=== PATIENT | female | born 1970 | race Caucasian/White ===

== ENCOUNTER → 2017-06-25 | Outpatient (CLI) | payer OTHER ==
--- NOTE | 2017-06-25 12:03 | MR ---
EXAMINATION TYPE: MR knee RT wo con DATE OF EXAM: 06/25/2017 11:50 AM COMPARISON: NONE HISTORY: Right knee pain TECHNIQUE: Multiplanar, multisequence imaging of the right knee is performed. FINDINGS: MEDIAL MENISCUS: Anterior and posterior horns are intact without tear. LATERAL MENISCUS: There is surgical absence of the posterior horn lateral meniscus and portions of th e body. Anterior horn is intact. CRUCIATE LIGAMENTS: Chronic tear ACL is noted. PCL is intact. COLLATERAL LIGAMENTS: The medial collateral ligament and lateral collateral ligament complex are intact and unremarkable. EXTENSOR MECHANISM: Visualized quadriceps and patellar tendons are intact. EFFUSION: Large joint effusion is identified. POPLITEAL CYST: No popliteal/wells cyst. TRICOMPARTMENT SPACES: Mild to moderate degenerative narrowing involving the medial and lateral tibio femoral joint space as well as the patellofemoral joint space. Early changes of chondromalacia patell a. Intercondylar spur formation as well as spurring along the margins of the tibial plateaus and femo ral condyles. CARTILAGE/BONE MARROW SIGNAL: Cartilaginous defect midportion lateral femoral condyle. Subchondral i ncreased signal within the femoral condyle and tibial plateau laterally. OTHER: No additional significant abnormality is appreciated. IMPRESSION: 1. Postsurgical change of the lateral meniscus without evidence for recurrent tear. 2. Chronic tear of the ACL. 3. Cartilaginous defect midportion lateral femoral condyle. Subchondral increased signal within the f emoral condyle and tibial plateau laterally. 4. Large joint effusion. 5. Changes of osteoarthritis.
== END | disposition home or self-care (01) ==
LOC: RADMRIMAIN 11:15
PROVIDERS: ATTEND Orthopaedic Surgery
DX: S83.511A Sprain of anterior cruciate ligament of right knee, initial encounter (principal); M17.11 Unilateral primary osteoarthritis, right knee; Z98.890 Other specified postprocedural states

== ENCOUNTER → 2017-07-22 | Outpatient (CLI) | payer OTHER ==
[2017-07-22 12:13] LABS: EKG EKG PERFORMED
[2017-07-22 12:24] LABS: Basophils % (A) 0 %; CH 29.4; CHCM 31.9; Eosinophils # (A) 0.2 k/uL (0-0.7); Eosinophils % (A) 2 %; HCT 46.8 % (34.0-46.0); HDW 2.24; HGB 14.8 gm/dL (11.4-16.0); Luc # (Auto) 0.24; Luc % (Auto) 2; Lymphocytes # (A) 2.1 k/uL (1.0-4.8); Lymphocytes % (A) 20 %; MCH 29.3 pg (25.0-35.0); MCHC 31.6 g/dL (31.0-37.0); MCV 92.8 fL (80.0-100.0); Monocytes # (A) 0.4 k/uL (0-1.0); Monocytes % (A) 4 %; Neutrophils # (A) 7.6 k/uL (1.3-7.7); Neutrophils % (A) 71 %; RBC 5.05 m/uL (3.80-5.40); WBC 10.6 k/uL (3.8-10.6); WBC (Perox) 10.65
[2017-07-22 12:40] LABS: Anion Gap 9 mmol/L; Carbon Dioxide 28 mmol/L (22-30); Chloride 105 mmol/L (98-107); Potassium 5.3 mmol/L (3.5-5.1); Sodium 142 mmol/L (137-145)
== END | disposition home or self-care (01) ==
LOC: LABPAT 11:47
PROVIDERS: ATTEND Orthopaedic Surgery
DX: Z01.810 Encounter for preprocedural cardiovascular examination (principal); M23.91 Unspecified internal derangement of right knee
CPT/HCPCS: 36415; 80051; 85025; 93005

== ENCOUNTER 2019-03-19 11:03 | Emergency (ER) | payer OTHER ==
[2019-03-19 11:22] VITALS: BP 127/96; PULSE 77; RESP 18; TEMP 98.8
[2019-03-19] MEDS ORDERED: KETOROLAC 60 MG/2 ML VIAL IM STA (12:20)
--- NOTE | 2019-03-19 12:58 | XR ---
Cervical spine HISTORY: Left neck pain, radiating to left shoulder and arm 5 views of the cervical spine Cervical vertebral bodies show preserved height, alignment, and bone mineralization. Reversal the nor mal cervical lordosis may be due to muscle spasm. There is loss of disc height greatest at C 6-7. Mul tilevel spondylosis is present. Prevertebral soft tissues are normal. No significant foraminal encroa chment. IMPRESSION: Degenerative disc disease.
--- NOTE | 2019-03-19 14:00 | ED ---
General Adult HPI - General Chief complaint: Neck Pain/Injury Stated complaint: Pinched nerve c4 & c5 Time Seen by Provider: 03/19/19 12:14 Source: patient Mode of arrival: ambulatory Limitations: no limitations - History of Present Illness Initial comments: Patient is a 49-year-old female presenting to emergency Department with complaints of left-sided neck pain 3 weeks. Patient states he woke up one morning and started having left-sided neck pain that radiates into her arm. States she went to a chiropractor who suggested she had a pinched nerve. She tried some adjustments without improvement. Patient states she just recently has medical insurance again and would like this checked. Patient describes the pain as in the left side of her neck that comes down by her scapula with radiation into her left arm. Patient denies chest pain, shortness of breath, nausea, vomiting. - Related Data Home Medications Medication Instructions Recorded Confirmed ALPRAZolam [Xanax] 1 mg PO HS 04/18/16 07/26/17 QUEtiapine [SEROquel] 50 mg PO HS 05/08/16 07/26/17 Cyclobenzaprine [Flexeril] 10 mg PO HS PRN 07/22/17 07/26/17 Previous Rx's Medication Instructions Recorded Ibuprofen [Motrin] 800 mg PO Q8HR PRN #60 tab 04/21/16 Hydrocodone/Acetaminophen [[place] 1 each PO Q6HR PRN #20 tab 07/26/17 5-325] Cyclobenzaprine [Flexeril] 5 mg PO TID PRN #10 tablet 03/19/19 Allergies Allergy/AdvReac Type Severity Reaction Status Date / Time sulfamethoxazole AdvReac Severe YEAST Verified 03/19/19 11:22 [From Bactrim] INFECTION trimethoprim [From Bactrim] AdvReac Severe YEAST Verified 03/19/19 11:22 INFECTION Review of Systems ROS Statement: Those systems with pertinent positive or pertinent negative responses have been documented in the HPI. ROS Other: All systems not noted in ROS Statement are negative. Past Medical History Past Medical History: Diabetes Mellitus, Osteoarthritis (OA) Additional Past Medical History / Comment(s): INJURY TO RIGHT KNEE AND LEFT FOOT WHEN GOLF CART ROLLED OVER ON 04/07/16, STATES LEFT FOOT CELLULITS WITH WOUNDS ON TOP OF LEFT FOOT HEALING BUT STATES IT IS STILL SWOLLEN AND BRUISED. WEARING A BRACE RIGHT KNEE AND USING A WALKER . History of Any Multi-Drug Resistant Organisms: None Reported Past Surgical History: Section, Hysterectomy, Orthopedic Surgery, Tubal Ligation, Uterine Ablation Additional Past Surgical History / Comment(s): TUBAL SURGERY, GANGLION CYST REMOVED, LEFT KNEE MENISCUS SURGERY. Past Anesthesia/Blood Transfusion Reactions: No Reported Reaction Past Psychological History: No Psychological Hx Reported Smoking Status: Current every day smoker Past Alcohol Use History: None Reported Past Drug Use History: None Reported - Past Family History Brother(s) Family Medical History: Diabetes Mellitus Sister(s) Family Medical History: Unable to Obtain Daughter(s) Family Medical History: No Reported History Son(s) Family Medical History: No Reported History Father Family Medical History: Cancer Mother Family Medical History: Diabetes Mellitus, Myocardial Infarction ([place]) General Exam - General Exam Comments Initial Comments: GENERAL: Well-appearing, well-nourished and in no acute distress. HEAD: Atraumatic, normocephalic. EYES: Pupils equal round and reactive to light, extraocular movements intact, sclera anicteric, conjunctiva are normal. ENT: TMs normal, nares patent, oropharynx clear without exudates. Moist mucous membranes. NECK: Normal range of motion of the cervical spine with tightness at the end range of flexion and right lateral flexion. Supple without lymphadenopathy or JVD. Pain with palpation of the left upper and middle trapezius and cervical paraspinals. LUNGS: Breath sounds clear to auscultation bilaterally and equal. No wheezes rales or rhonchi. HEART: Regular rate and rhythm without murmurs, rubs or gallops. ABDOMEN: Soft, nontender, normoactive bowel sounds. No guarding, no rebound. No masses appreciated. : Deferred EXTREMITIES: Normal range of motion, no pitting or edema. No clubbing or cyanosis. NEUROLOGICAL: Cranial nerves II through XII grossly intact. Normal speech, normal gait. PSYCH: Normal mood, normal affect. SKIN: Warm, Dry, normal turgor, no rashes or lesions noted. Limitations: no limitations Course Vital Signs 03/19/19 11:19 Temperature 98.8 F Pulse Rate 77 Respiratory 18 Rate Blood Pressure 127/96 O2 Sat by Pulse 98 Oximetry Medical Decision Making - Medical Decision Making Patient is a 49-year-old female complaining of left-sided neck pain and muscle spasms as 3 weeks. Patient states he went to a chiropractor receded adjustments without improvement. She recently has medical insurance and would like checked. On exam patient is tender over the left upper trapezius and tightness and range of motion. X-rays of the cervical spine reveal degenerative changes. No acute fractures. Toradol was given with improvement. Patient be discharged home with trial of flexeril and urged to follow up with orthopedics. Case discussed with Dr. Oleary. Disposition Clinical Impression: Disc disorder of cervical region, Cervical radiculopathy Disposition: HOME SELF-CARE Condition: Stable Instructions (If sedation given, give patient instructions): Cervical Radiculopathy (ED) Additional Instructions: Please return to the Emergency Department if symptoms worsen or any other concerns. Prescriptions: Cyclobenzaprine [Flexeril] 5 mg PO TID PRN #10 tablet PRN Reason: Muscle Spasm Is patient prescribed a controlled substance at d/c from ED?: No Referrals: Ashish Raphael DO [Primary Care Provider] - 1-2 days Viral Gar DO [Medical Doctor] - 1-2 days
== END 2019-03-19 14:08 | disposition home or self-care (01) ==
LOC: EC 11:03 → SUPCPDRO 11:03 → EC 14:08
DX: M50.10 Cervical disc disorder with radiculopathy, unspecified cervical region (principal); M47.892 Other spondylosis, cervical region; M19.90 Unspecified osteoarthritis, unspecified site; F17.200 Nicotine dependence, unspecified, uncomplicated; Z79.899 Other long term (current) drug therapy; Z88.1 Allergy status to other antibiotic agents; Z88.2 Allergy status to sulfonamides
CPT/HCPCS: 72050; 99283; 96372; J1885

== ENCOUNTER 2019-09-01 13:19 | Emergency (ER) | payer OTHER ==
[2019-09-01 13:38] VITALS: BP 121/82; PULSE 89; RESP 18; TEMP 98.1
[2019-09-01] MEDS ORDERED: ACYCLOVIR 400 MG/10 ML CUP PO ONE (14:15)
[2019-09-01] MEDS ORDERED: ACET/COD 300 MG/30 MG STARTER PACK 6 TAB BTL PO STA (14:15)
[2019-09-01] MEDS ORDERED: CEPHALEXIN 500MG STARTER PACK 4 CAP BTL PO STA (14:15)
--- NOTE | 2019-09-01 14:47 | ED ---
General Adult HPI - General Chief complaint: Urogenital Stated complaint: Female , finger pain Source: patient, RN notes reviewed, old records reviewed Mode of arrival: ambulatory Limitations: no limitations - History of Present Illness Initial comments: Edith is a 49-year-old female she presents emergency department today for evaluation for multiple complaints. She reports that she's had an infection over her left index finger for the past week. She reports that she initially was taking of a octavio basket, and believes that she caused a splinter on the edge of her finger. She reports that over the past few days been increasing in size, tender and erythema. Patient also reports that approximately 2 weeks ago she had intercourse and reports that since that time she's developed a "bump, on her vaginal opening, and complains of significant pain with palpation. She reports that she is unable to see the area at this time. She denies any abnormal vaginal discharge or dysuria. Patient states that she also has been dealing with a hamstring injury. She reports that this occur the same day that she had intercourse. Patient states that she has pain with range of motion of her leg from time to time. Denies any lower extremity swelling. - Related Data Home Medications Medication Instructions Recorded Confirmed ALPRAZolam [Xanax] 1 mg PO HS 04/18/16 07/26/17 QUEtiapine [SEROquel] 50 mg PO HS 05/08/16 07/26/17 Cyclobenzaprine [Flexeril] 10 mg PO HS PRN 07/22/17 07/26/17 Previous Rx's Medication Instructions Recorded Ibuprofen [Motrin] 800 mg PO Q8HR PRN #60 tab 04/21/16 Hydrocodone/Acetaminophen [[place] 1 each PO Q6HR PRN #20 tab 07/26/17 5-325] Cyclobenzaprine [Flexeril] 5 mg PO TID PRN #10 tablet 03/19/19 Cephalexin [Keflex] 500 mg PO Q8HR #21 cap 09/01/19 valACYclovir HCL [Valtrex] 1,000 mg PO Q8HR #21 tab 09/01/19 Allergies Allergy/AdvReac Type Severity Reaction Status Date / Time sulfamethoxazole AdvReac Severe YEAST Verified 09/01/19 13:35 [From Bactrim] INFECTION trimethoprim [From Bactrim] AdvReac Severe YEAST Verified 09/01/19 13:35 INFECTION Review of Systems ROS Statement: Those systems with pertinent positive or pertinent negative responses have been documented in the HPI. ROS Other: All systems not noted in ROS Statement are negative. Past Medical History Past Medical History: Diabetes Mellitus, Osteoarthritis (OA) Additional Past Medical History / Comment(s): INJURY TO RIGHT KNEE AND LEFT FOOT WHEN GOLF CART ROLLED OVER ON 04/07/16, STATES LEFT FOOT CELLULITS WITH WOUNDS ON TOP OF LEFT FOOT HEALING BUT STATES IT IS STILL SWOLLEN AND BRUISED. WEARING A BRACE RIGHT KNEE AND USING A WALKER . History of Any Multi-Drug Resistant Organisms: None Reported Past Surgical History: Section, Hysterectomy, Orthopedic Surgery, Tubal Ligation, Uterine Ablation Additional Past Surgical History / Comment(s): TUBAL SURGERY, GANGLION CYST REMOVED, LEFT KNEE MENISCUS SURGERY. Past Anesthesia/Blood Transfusion Reactions: No Reported Reaction Past Psychological History: Anxiety Smoking Status: Current every day smoker Past Alcohol Use History: Occasional Past Drug Use History: Marijuana - Past Family History Brother(s) Family Medical History: Diabetes Mellitus Sister(s) Family Medical History: Unable to Obtain Daughter(s) Family Medical History: No Reported History Son(s) Family Medical History: No Reported History Father Family Medical History: Cancer Mother Family Medical History: Diabetes Mellitus, Myocardial Infarction ([place]) General Exam - General Exam Comments Initial Comments: Pleasant 49-year-old female. No distress. Limitations: no limitations General appearance: alert, in no apparent distress Head exam: Present: atraumatic, normocephalic, normal inspection Eye exam: Present: normal appearance, PERRL, EOMI. Absent: scleral icterus, conjunctival injection, periorbital swelling ENT exam: Present: normal exam, mucous membranes moist Neck exam: Present: normal inspection. Absent: tenderness, meningismus, lymphadenopathy Respiratory exam: Present: normal lung sounds bilaterally. Absent: respiratory distress, wheezes, rales, rhonchi, stridor Cardiovascular Exam: Present: regular rate, normal rhythm, normal heart sounds. Absent: systolic murmur, diastolic murmur, rubs, gallop, clicks GI/Abdominal exam: Present: soft, normal bowel sounds. Absent: distended, tenderness, guarding, rebound, rigid External exam: Present: normal external exam Speculum exam: Present: other (Bills has 3 separate blisterlike lesions over the labia minora, and vaginal vault. Concern for herpes.). Absent: normal speculum exam By manual exam: Present: normal by manual exam. Absent: cervical motion tenderness Extremities exam: Present: normal inspection, full ROM, normal capillary refill. Absent: tenderness, pedal edema, joint swelling, calf tenderness Back exam: Present: normal inspection Neurological exam: Present: alert, oriented X3, CN II-XII intact Psychiatric exam: Present: normal affect, normal mood Skin exam: Present: warm, dry, intact, normal color. Absent: rash Course Vital Signs 09/01/19 13:35 Temperature 98.1 F Pulse Rate 89 Respiratory 18 Rate Blood Pressure 121/82 O2 Sat by Pulse 99 Oximetry Medical Decision Making - Medical Decision Making 49-year-old female presents for multiple complaints. She is concerned due to a paronychia over the left index finger. This was incised and drained. There is blind, purulent fluid was removed but to little to obtain a culture. Patient was placed on antibiotics and discussed doing warm soaks of the finger. She also Is concerned for a irritation over her labia and vagina after intercourse. On exam is concerning for herpes simplex-like lesions with blistering noted. I discussed treatment Patient this time with Valtrex. Her analysis is negative for infection Trichomonas test is negative. She had no adnexal tenderness on exam. I discussed treatment with anti-inflammatory medication as well and to follow-up with a gang plank workman. All questions were answered return parameters were discussed. - Lab Data Lab Results 09/01/19 09/01/19 09/01/19 Range/Units 14:28 14:28 14:28 Urine Color Yellow Urine Appearance Cloudy H (Clear) Urine pH 5.5 (5.0-8.0) Ur Specific [place] 1.013 (1.001-1.035) Urine Protein Negative (Negative) Urine Glucose (UA) Negative (Negative) Urine Ketones Negative (Negative) Urine Blood Small H (Negative) Urine Nitrite Negative (Negative) Urine Bilirubin Negative (Negative) Urine Urobilinogen <2.0 (<2.0) mg/dL Ur Leukocyte Esterase Large H (Negative) Urine RBC 7 H (0-5) /hpf Ur Squamous Epith Cells 3 (0-4) /hpf Urine Bacteria Moderate H (None) /hpf Urine Mucus Rare H (None) /hpf Urine HCG, Qual Not Detected (Not Detectd) Trichomonas Ag (Rapid) Negative (Negative) Disposition Clinical Impression: Herpes, Paronychia, Hamstring strain Disposition: HOME SELF-CARE Condition: Good Instructions (If sedation given, give patient instructions): Genital Herpes Simplex (ED), Paronychia (ED) Additional Instructions: Patient advised to take medications as prescribed. Do warm soaks of the finger. Follow-up with primary care doctor and gynecology. Prescriptions: Cephalexin [Keflex] 500 mg PO Q8HR #21 cap valACYclovir HCL [Valtrex] 1,000 mg PO Q8HR #21 tab Is patient prescribed a controlled substance at d/c from ED?: No Referrals: Ashish Raphael DO [Primary Care Provider] - 1-2 days Time of Disposition: 15:01
[2019-09-01 14:48] LABS: Appearance,Urine Cloudy (Clear); Bacteria,Urine Moderate /hpf; Bilirubin,Urine Negative (Negative); Blood,Urine Small (Negative); Color,Urine Yellow; Glucose,Urine (UA) Negative (Negative); Ketones,Urine Negative (Negative); Leukocyte Esterase,Urine Large (Negative); Mucus,Urine Rare /hpf; Nitrite,Urine Negative (Negative); PH, Urine 5.5 (5.0-8.0); Protein,Urine Negative (Negative); RBC,Urine 7 /hpf (0-5); Specific Gravity,Urine 1.013 (1.001-1.035); Squamous Epithelial Cell,Urine 3 /hpf (0-4); Urobilinogen,Urine <2.0 mg/dL (<2.0)
[2019-09-02 14:09] LABS: C. trachomatis,PCR Negative (Neg,Equiv); Chlamydia trachomatis Source Vagina; N. gonorrhoeae,PCR Negative (Neg,Equiv); Neisseria Source Vagina
--- NOTE | 2019-09-03 08:49 | CDI ---
Documentation Clarification OP Dear Cammie Kaplan PA-C, PAC Please provide paronychia incision & drainage complete procedure note. Thank you, Adelina Green Recreational Sports Director If you have any questions, please contact Special Events Assistant at [phone] [facility]
--- NOTE | 2019-09-10 07:44 | CDI ---
Documentation Clarification OP Dear Cammie Kaplan PA-C, PAC Please provide paronychia incision & drainage complete procedure note Thank you, Adelina Green Outside Installer Apprentice If you have any questions, please contact Ui Developer Designer at [phone] [facility]
--- NOTE | 2019-09-14 10:57 | ED ---
Medical Decision Making - Lab Data Lab Results 09/01/19 09/01/19 09/01/19 Range/Units 14:28 14:28 14:28 Urine Color Yellow Urine Appearance Cloudy H (Clear) Urine pH 5.5 (5.0-8.0) Ur Specific [place] 1.013 (1.001-1.035) Urine Protein Negative (Negative) Urine Glucose (UA) Negative (Negative) Urine Ketones Negative (Negative) Urine Blood Small H (Negative) Urine Nitrite Negative (Negative) Urine Bilirubin Negative (Negative) Urine Urobilinogen <2.0 (<2.0) mg/dL Ur Leukocyte Esterase Large H (Negative) Urine RBC 7 H (0-5) /hpf Urine WBC 28 H (0-5) /hpf Ur Squamous Epith Cells 3 (0-4) /hpf Urine Bacteria Moderate H (None) /hpf Urine Mucus Rare H (None) /hpf Urine HCG, Qual Not Detected (Not Detectd) Chlamydia Source Chlamydia DNA (PCR) (Neg,Equiv) N. gonorrhoeae Source N.gonorrhoeae DNA Probe (Neg,Equiv) Trichomonas Ag (Rapid) Negative (Negative) 09/01/19 Range/Units 14:29 Urine Color Urine Appearance (Clear) Urine pH (5.0-8.0) Ur Specific [place] (1.001-1.035) Urine Protein (Negative) Urine Glucose (UA) (Negative) Urine Ketones (Negative) Urine Blood (Negative) Urine Nitrite (Negative) Urine Bilirubin (Negative) Urine Urobilinogen (<2.0) mg/dL Ur Leukocyte Esterase (Negative) Urine RBC (0-5) /hpf Urine WBC (0-5) /hpf Ur Squamous Epith Cells (0-4) /hpf Urine Bacteria (None) /hpf Urine Mucus (None) /hpf Urine HCG, Qual (Not Detectd) Chlamydia Source Vagina Chlamydia DNA (PCR) Negative (Neg,Equiv) N. gonorrhoeae Source Vagina N.gonorrhoeae DNA Probe Negative (Neg,Equiv) Trichomonas Ag (Rapid) (Negative) Disposition Clinical Impression: Herpes, Paronychia, Hamstring strain Disposition: HOME SELF-CARE Condition: Good Instructions (If sedation given, give patient instructions): Genital Herpes Simplex (ED), Paronychia (ED) Additional Instructions: Patient advised to take medications as prescribed. Do warm soaks of the finger. Follow-up with primary care doctor and gynecology. Prescriptions: Fluconazole [Diflucan] 150 mg PO ONCE #3 tab Cephalexin [Keflex] 500 mg PO Q8HR #21 cap valACYclovir HCL [Valtrex] 1,000 mg PO Q8HR #21 tab Is patient prescribed a controlled substance at d/c from ED?: No Referrals: Ashish Raphael DO [Primary Care Provider] - 1-2 days Time of Disposition: 10:57 Procedures - Incision & Drainage Indication: paronychia Size (cm): 1 I&D Cleaning Method: Iodine Sterile Field Used?: Yes Scalpel Used: #11 Needle Aspiration Performed?: Yes Irrigation Performed?: Yes I&D Drainage Obtained: Blood Culture Obtained?: No Patient Tolerated Procedure: well, no complications
== END 2019-09-01 15:14 | disposition home or self-care (01) ==
LOC: EC 13:19
DX: S76.311A Strain of muscle, fascia and tendon of the posterior muscle group at thigh level, right thigh, initial encounter (principal); B00.9 Herpesviral infection, unspecified; L03.012 Cellulitis of left finger; F41.9 Anxiety disorder, unspecified; F17.200 Nicotine dependence, unspecified, uncomplicated; Z90.710 Acquired absence of both cervix and uterus; Z98.51 Tubal ligation status; Z79.899 Other long term (current) drug therapy; Z88.2 Allergy status to sulfonamides
CPT/HCPCS: 10160; 81001; 81025; 87070; 87086; 87491; 87591; 87808; 99284

== ENCOUNTER 2019-09-30 15:09 | Emergency (ER) | payer OTHER ==
[2019-09-30 16:02] VITALS: BP 130/83; PULSE 92; RESP 18; TEMP 98.3
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
[2019-09-30] MEDS ORDERED: metroNIDAZOLE 500 MG TAB PO STA (17:34)
[2019-10-01 14:45] LABS: N. gonorrhoeae,PCR Negative (Neg,Equiv); Neisseria Source Vagina
[2019-10-01 15:09] LABS: C. trachomatis,PCR Negative (Neg,Equiv); Chlamydia trachomatis Source Vagina
== END 2019-09-30 17:43 | disposition home or self-care (01) ==
LOC: EC 15:09
DX: N76.0 Acute vaginitis (principal); E11.9 Type 2 diabetes mellitus without complications; F41.9 Anxiety disorder, unspecified; F17.200 Nicotine dependence, unspecified, uncomplicated; Z79.899 Other long term (current) drug therapy; Z88.1 Allergy status to other antibiotic agents; Z88.2 Allergy status to sulfonamides
CPT/HCPCS: 87070; 87491; 87591; 87808; 99283

== ENCOUNTER → 2020-05-18 | Outpatient (CLI) | payer OTHER | END | disposition home or self-care (01) | LOC: LABPAT 13:34 | PROVIDERS: ATTEND Orthopaedic Surgery | DX: Z01.812 Encounter for preprocedural laboratory examination (principal) | CPT/HCPCS: 87070 ==

== ENCOUNTER → 2020-05-20 | Outpatient (CLI) | payer OTHER ==
--- NOTE | 2020-05-20 13:34 | XR ---
EXAMINATION TYPE: XR chest 2V DATE OF EXAM: 05/20/2020 COMPARISON: 04/07/2016 TECHNIQUE: PA and lateral views submitted. HISTORY: Preop FINDINGS: The lungs are clear and there is no pneumothorax, pleural effusion, or focal pneumonia. Heart is no rmal. There is no overt failure. Hypertrophic and degenerative change of the spine. Hyperinflation of the lungs. IMPRESSION: 1. No acute process.
== END | disposition home or self-care (01) ==
LOC: RADXRMAIN 13:18
PROVIDERS: ATTEND Family Medicine
DX: Z01.818 Encounter for other preprocedural examination (principal)
CPT/HCPCS: 71046

== ENCOUNTER → 2020-05-23 | Outpatient (CLI) | payer OTHER ==
[2020-05-23 16:01] LABS: Basophils # (A) 0.1 k/uL (0-0.2); Basophils % (A) 1 %; Eosinophils # (A) 0.3 k/uL (0-0.7); Eosinophils % (A) 2 %; HCT 47.7 % (34.0-46.0); HGB 14.8 gm/dL (11.4-16.0); Lymphocytes # (A) 2.4 k/uL (1.0-4.8); Lymphocytes % (A) 21 %; MCH 28.6 pg (25.0-35.0); MCHC 31.1 g/dL (31.0-37.0); MCV 92.1 fL (80.0-100.0); Mean Platelet Volume 7.4; Monocytes # (A) 0.3 k/uL (0-1.0); Monocytes % (A) 3 %; Neutrophils # (A) 8.4 k/uL (1.3-7.7); Neutrophils % (A) 73 %; Platelet Count 301 k/uL (150-450); RBC 5.17 m/uL (3.80-5.40); RDW 13.8 % (11.5-15.5); WBC 11.6 k/uL (3.8-10.6)
[2020-05-23 16:08] LABS: Prothrombin Time 10.7 sec (9.0-12.0)
[2020-05-23 16:12] LABS: Potassium 4.5 mmol/L (3.5-5.1)
== END | disposition home or self-care (01) ==
LOC: LABWHC1 14:57
PROVIDERS: ATTEND Family Medicine
DX: Z01.818 Encounter for other preprocedural examination (principal); M17.11 Unilateral primary osteoarthritis, right knee
CPT/HCPCS: 36415; 80051; 85025; 85610

== ENCOUNTER 2020-05-24 10:56 | Observation (INO) | payer OTHER ==
[2020-05-17 10:15] VITALS: BMI 34.7
--- NOTE | 2020-05-23 09:19 | HP ---
HISTORY AND PHYSICAL CHIEF COMPLAINT: Right knee pain. 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 She notes swelling and stiffness along with frequent giving way. She has tried multiple modalities for this to include medications, injection, and exercises. She has persistent pain that bothers her daily. PAST MEDICAL HISTORY: Significant for type 2 diabetes, arthritis. PAST SURGICAL HISTORY: Significant for right knee arthroscopy x2, left knee surgery, previous section. CURRENT MEDICATIONS: Xanax. ALLERGIES: She denies drug allergies. FAMILY HISTORY: Significant for diabetes and heart disease, along with cancer. SOCIAL HISTORY: Significant for current tobacco use. REVIEW OF SYSTEMS: Sixteen point review of systems otherwise reviewed and is noncontributory. PHYSICAL EXAMINATION: On examination, the patient is approximately 5 foot 6, 220 pounds of endomorphic habitus. HEENT: Exam is nonfocal. NECK: Supple. She has painless passive motion of the right hip. Straight leg raise is negative. Active motion right knee -6 to 135 degrees of flexion. She has a mild effusion. She is tender about the medial and lateral joint line. Collaterals are stable. Sabine's 1+. Pivot shift is positive. Khushi's is equivocal. She has genu valgum alignment. Her distal neurovascular appears intact in the right lower extremity. Weightbearing notch, lateral and Merchant views of the right knee obtained in the office show severe lateral compartment narrowing. IMPRESSION: 1. Right knee severe lateral compartment osteoarthrosis with anterior cruciate ligament deficiency. 2. Increased body mass index. 3. Non-insulin dependent diabetes. RECOMMENDATIONS: I talked to the patient at length regarding her condition along with treatment options. At this point, she is quite symptomatic and opts to proceed with surgery. We will plan to proceed with right total knee arthroplasty. Risks and benefits were discussed at length in layman's terms. We will institute DVT prophylaxis postoperatively. MMODL / IJN: [id number] /
[~2020-05-24 10:56] MED LIST: ACETAMINOPHEN TAB 500 MG TAB PO ONE; DEXAMETHASONE SOD PHOSPHATE 10 MG/ML 1 ML VIAL IV ONE; HYDROmorphone 0.5 MG/0.5 ML SYRINGE IVP PRN; LIDOCAINE 1% (10MG/ML) FOR IV START INTRADERMA PRN; MELOXICAM 7.5 MG TAB PO ONE; MIDAZOLAM 2 MG/2 ML VIAL IV PRN; ROPIVACAINE 246.25 MG, EPINEPHrine 0.5 MG, KETOROLAC 30 MG, cloNIDine HCL/PF 80 MCG, WA... MISCELLANE ONE; TRANEXAMIC ACID 1,000 MG in SODIUM CHLORIDE 0.9% 100 ML IVPB ONE
[2020-05-24 11:44] LABS: Glucose,Whole Blood 116 mg/dL (75-99)
[2020-05-24] MEDS ORDERED: ONDANSETRON 4 MG/2 ML VIAL ONE (11:59)
[2020-05-24] MEDS ORDERED: ACETAMINOPHEN TAB 500 MG TAB ONE (11:59)
[2020-05-24] MEDS: ONDANSETRON 4 MG/2 ML VIAL IVP ONE ×2 (12:05→16:41)
[2020-05-24] MEDS: LACTATED RINGERS 1,000 ML IV SCH (12:09)
[2020-05-24] MEDS ORDERED: MIDAZOLAM 2 MG/2 ML VIAL IVP ONE (12:12)
[2020-05-24] MEDS ORDERED: fentaNYL (PF) 50 MCG/ML 2 ML AMP IVP ONE (12:13)
[2020-05-24] MEDS ORDERED: PROPOFOL 10 MG/ML 20 ML VIAL IV ONE (13:04)
[2020-05-24] MEDS ORDERED: SODIUM CHLORIDE 0.9% 100 ML BAG ONE (13:04)
[2020-05-24] MEDS ORDERED: TRANEXAMIC ACID 1,000 MG/10 ML VIAL ONE (13:04)
[2020-05-24] MEDS ORDERED: fentaNYL (PF) 50 MCG/ML 2 ML AMP ONE (13:04)
[2020-05-24] MEDS ORDERED: PHENYLEPHRINE-0.9% NACL SYG 1 MG/10 ML SYRINGE ONE (13:04)
[2020-05-24] MEDS ORDERED: MIDAZOLAM 2 MG/2 ML VIAL ONE (13:04)
[2020-05-24] MEDS ORDERED: HYDROcodone/APAP 7.5-325MG 1 EACH TAB PO PRN (14:53)
[2020-05-24] MEDS ORDERED: NALOXONE 0.4 MG/ML 1 ML VIAL IV PRN (14:53)
[2020-05-24] MEDS ORDERED: ONDANSETRON 4 MG/2 ML VIAL IVP PRN (14:53)
[2020-05-24] MEDS ORDERED: ACETAMINOPHEN TAB 325 MG TAB PO PRN (14:53)
[2020-05-24] MEDS ORDERED: HYDROmorphone 0.5 MG/0.5 ML SYRINGE IVP PRN (14:53)
[2020-05-24] MEDS ORDERED: traMADol 50 MG TAB PO PRN (14:53)
[2020-05-24] MEDS ORDERED: MAGNESIUM HYDROXIDE 2,400 MG/10 ML CUP PO PRN (14:53)
[2020-05-24] MEDS ORDERED: ROPIVACAINE 0.2%-NS ON-Q PUMP 1,090 MG, EMPTY PAIN BALL 1 EACH MISCELLANE PRN (15:13)
--- NOTE | 2020-05-24 15:13 | P.OP ---
Date of Procedure: 05/24/20 Preoperative Diagnosis: Right knee severe tricompartmental osteoarthrosis Postoperative Diagnosis: Same Procedure(s) Performed: Right total knee arthroplastycementedposterior stabilized Implants: Depuy Attune size 6 narrow cemented femoral component, size 5 cemented tibial component, 9 mm articular surface, 35 mm cemented patellar component. This is a posterior stabilized implant. Anesthesia: spinal Surgeon: Patrick Fleming Lightout Examiner #1: Otto Simon Estimated Blood Loss (ml): 50 Pathology: other (Bone fragments) Condition: stable Disposition: PACU Indications for Procedure: Patient's a 50-year-old female presents with progressive right knee pain secondary osteoarthrosis despite conservative measures. A discussion the risks and benefits of operative intervention versus continued conservative measures. The patient. She opted proceed with surgery. Operative risks to include infection, neurovascular injury, development of blood clots, possible component loosening, possible component failure need for subsequent procedures was discussed. Informed consent was obtained. Operative Findings: As below Description of Procedure: The patient was brought to the operating room, and after induction of spinal anesthesia the right lower extremity was prepped and draped in a normal fashion. The tourniquet was inflated to 270 mm marker. A longitudinal incision extending 3 finger breaths above the superior pole of patella extending to the medial aspect the tibial tubercle was then made. The skin and subcutaneous tissues were divided sharply. Electrocautery was used for hemostasis. A medial parapatellar arthrotomy was performed. The medial soft tissues to include the superficial and deep portions of the medial collateral ligament were elevated landaverde bperiosteally. The patella was everted. A portion of the retropatellar fat pad was excised sharply. The anterior cruciate ligament was sacrificed. Blunt retractors were placed. A starting hole was made in the distal femur 1 cm anterior to the posterior cruciate ligament origin. An intramedullary femoral guide was then inserted planning on 5 valgus distal cut with 9 mm distal resection. The cutting block was pinned in place. The distal cut was then made. The posterior referencing sizing guide was utilized. I felt size 6 narrow was most appropriate. 3 of external rotation was built into the system and verified off the trans-epicondylar axis and the posterior condyles. The cutting block was pinned in place. The anterior, posterior, and chamfer cuts then made. Bone fragments were removed. The intercondylar guide was placed and the notch cut was made with a sagittal saw. The bone block was removed in one fragment. The trial component was then placed. There is good anterior to posterior and medial to lateral fit. The distal peg holes were drilled. The trial component was removed. Attention was then paid towards preparing the proximal femur. An extra medullary guide was utilized in line with the tibial shaft and second metatarsal distally. I planned on 6 mm resection from the medial compartment. The cutting block was pinned in place. The proximal tibial cut was then made. The bone was removed in one fragment. The remnants of the medial and lateral menisci were excised at the capsular junction with electrocautery. The tibia sized most appropriately at size 5. The trial femoral and tibial components were placed along with a 9 mm articular surface. I was able to obtain full flexion and extension with internal and external rotation. After several flexion and extension cycles, the tibial rotation was marked with electrocautery line with the medial one third of the tibial tubercle. Attention was then paid towards preparing the patella. A patella reamer was utilized taking stem to 14 mm of bone stock. A good flush cut was made. The patella sized most appropriately 35 mm. The peg holes were drilled. The trial components placed. I had good patellofemoral tracking with no hands technique. The trial components were then removed. The tibia was prepared in the appropriate rotation with appropriate drill and keel punch. The posterior osteophytes were removed with a curved osteotome. The flexion and extension gaps were checked and felt to be symmetric at 9 mm. A trial components were then removed. The posterior soft tissues were injected with ropivacaine. The bony surfaces were prepared with pulsatile lavage and dried. The tibial component was then cemented place was fully seated. Excess cement was removed. The femoral component cemented place and was fully seated. Excess cement was removed. The trial 9 mm articular surface was placed and the knee was put in full extension. The patella component was cemented place. After the cement had sufficiently hardened, the knee was again taken through a range of motion. Again I was able to obtain full flexion and extension with varus and valgus stress. The trial 9 mm articular surface was removed and the final one inserted. This was fully seated. Care was taken to avoid any soft tissue interposition. Pulsatile lavage was again utilized. The medial parapatellar arthrotomy was closed with #2 Ethibond suture. The tourniquet was deflated with approximately 60 minutes total tourniquet time. Final hemostasis was obtained with the cautery. There was minimal bleeding therefore a deep drain was not placed. The subcutaneous tissues were reapproximated with interrupted 2-0 Vicryl sutures. The skin was reapproximated with 3-0 subcuticular strata fix suture. Skin tape and adhesive was applied. A sterile dressing was applied. The patient was awoken from sedation and transferred to recovery room in good condition. Blood loss was estimated at 50 mL. No complications were incurred. Sponge and needle counts were correct at the end of the case. Misael GONSALVES assisted during the major components of this case to include exposure, bone resection, implantation, and closure.
--- NOTE | 2020-05-24 15:47 | XR ---
EXAMINATION TYPE: XR knee limited RT DATE OF EXAM: 05/24/2020 CLINICAL HISTORY: Right knee pain and arthritis status post total knee replacement. TECHNIQUE: Portable AP and crosstable lateral views of the right knee are obtained immediately posto peratively. COMPARISON: ] Knee x-ray April 07, 2016. FINDINGS: Metallic hardware from total right knee arthroplasty is seen and appears satisfactory in a lignment and position. There is evidence of recent surgery with diffuse subcutaneous gas and soft ti ssue swelling noted. IMPRESSION: METALLIC HARDWARE FROM TOTAL RIGHT KNEE ARTHROPLASTY IS SATISFACTORY IN ALIGNMENT.
[2020-05-24] MEDS ORDERED: SENNOSIDES-DOCUSATE SODIUM 1 EACH TAB PO SCH (21:00)
--- NOTE | 2020-05-24 21:33 | P.ANPRN ---
Procedure Note - Anesthesia - Nerve Block Performed Right Adductor Canal Infusion Time Out Performed: Yes Date of Procedure: 05/24/20 Procedure Start Time: 12:12 Procedure Stop Time: 12:28 Location of Patient: PreOp Indication: Acute Post-Operative Pain, Dx/Pain Location, Requested by Surgeon Specifically requested for management of pain by : Nael Perez Sedation Type: Sedate with meaningful contact maintained Preparation: Sterile Prep, Sterile Dressing Position: Supine Catheter Depth at Skin (cm): 5 Catheter: Indwelling Needle Types: On-Q Needle Gauge: 20 Ultrasound used to visualize needle placement: Yes Ultrasound used to observe medication spread: Yes Injectate: 0.5% Ropivacaine (see comment for volume) Blood Aspirated: No Pain Paresthesia on Injection Noted: No Resistance on Injection: Normal Image Stored and Saved: Yes Events: Uneventful and Well Tolerated (20cc 0.5% Ropivacaine)
[2020-05-24] MEDS: HYDROmorphone 1 MG/ML 1 ML SYRINGE IVP PRN (21:37)
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
[2020-05-25] MEDS: HYDROmorphone 1 MG/ML 1 ML SYRINGE IVP PRN ×3 (00:44→09:02)
[2020-05-25] MEDS: LACTATED RINGERS 1,000 ML IV SCH (06:30)
[2020-05-25 07:07] LABS: Basophils % (A) 0 %; Eosinophils # (A) 0.1 k/uL (0-0.7); Eosinophils % (A) 1 %; HCT 41.4 % (34.0-46.0); HGB 12.8 gm/dL (11.4-16.0); Hypochromasia Slight; Lymphocytes # (A) 1.4 k/uL (1.0-4.8); Lymphocytes % (A) 9 %; MCH 28.8 pg (25.0-35.0); MCHC 30.8 g/dL (31.0-37.0); MCV 93.6 fL (80.0-100.0); Mean Platelet Volume 7.9; Monocytes # (A) 0.4 k/uL (0-1.0); Monocytes % (A) 3 %; Neutrophils # (A) 14.4 k/uL (1.3-7.7); Neutrophils % (A) 88 %; Platelet Count 266 k/uL (150-450); RBC 4.42 m/uL (3.80-5.40); RDW 13.5 % (11.5-15.5); WBC 16.5 k/uL (3.8-10.6)
--- NOTE | 2020-05-25 08:06 | P.PN ---
Progress Note - Text Progress Note Date: 05/25/20 Patient seen and examined this morning POD #1 from a right total knee replacement. She describes moderate pain in her knee but is sitting up in bed comfortably. She is able to ambulate with a walker and her spinal anesthetic has worn off. She reports no headache, nausea, fevers, chills. Catheter site checked and sterile dressing is intact. Continue with pain pump.
[2020-05-25 08:46] VITALS: BP 88/55; PULSE 50; RESP 17; TEMP 97.7
[2020-05-25] MEDS ORDERED: APIXABAN 2.5 MG TABLET PO SCH (09:00)
[2020-05-25] MEDS ORDERED: oxyCODONE-APAP 10-325MG 1 EACH TAB PO PRN (09:06)
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
--- NOTE | 2020-05-25 11:59 | P.PN ---
Subjective Progress Note Date: 05/25/20 Principal diagnosis: Status post right total knee arthroplasty Patient is evaluated today with her, she is resting comfortably. She's done well with therapy. Her pain is well-controlled. She denies any chest pain or shortness of breath. Objective - Vital Signs Vital signs: Vital Signs Temp 97.7 F 05/25/20 07:00 Pulse 50 L 05/25/20 07:00 Resp 17 05/25/20 07:00 BP 88/55 05/25/20 07:00 Pulse Ox 96 05/25/20 07:00 Intake & Output 05/24/20 05/25/20 05/25/20 18:59 06:59 18:59 Intake Total 1999 1030 Output Total 50 Balance 1950 1030 Weight 98.9 kg Intake: IV 2000 Intake, IV Titration 490 Amount Lactated Ringers 1,000 ml 340 @ 50 mls/hr IV .Q20H [facility] Rx#:[id number] ceFAZolin 2 gm In Sodium 100 Chloride 0.9% 50 ml @ 100 mls/hr IVPB ONCE ONE Rx# :[id number] ceFAZolin 2 gm In Sodium 50 Chloride 0.9% 50 ml @ 100 mls/hr IVPB Q8H [facility] Rx#: [id number] Oral 540 Output: Estimated Blood Loss 50 Other: Voiding Method Toilet Bedside Commode # Voids 1 - Exam Right lower extremity: Incision is clean, dry, and intact. The exofin fusion tape is in good condition. There is minimal soft tissue swelling and ecchymosis surrounding the medial and lateral aspects of the incision. Calf is soft, no tenderness with palpation. Plantar flexion, dorsiflexion, EHL, FHL are intact. Sensory exam to light touch throughout the extremity is intact, dorsal pedis pulses 2+. - Labs CBC & Chem 7: 05/25/20 06:37 Labs: Abnormal Lab Results - Last 24 Hours (Table) 05/25/20 Range/Units 06:37 WBC 16.5 H (3.8-10.6) k/uL MCHC 30.8 L (31.0-37.0) g/dL Neutrophils # 14.4 H (1.3-7.7) k/uL Assessment and Plan Assessment: status post right total knee arthroplasty Plan: Pain control, plan for oral medication of discharge GI and DVT prophylaxis, Eliquis 2.5mg bid for 14 days Wound care instructions were discussed Home physical therapy and nursing Medical recommendations Discharge planning: Plan for discharge home today Time with Patient: Less than 30
--- NOTE | 2020-05-25 12:03 | P.DS ---
Providers Date of admission: 05/24/2020 Expected date of discharge: 05/25/20 Attending physician: Patrick Fleming Primary care physician: Ashish [facility] Course: Date of admission: 05/24/2020 Date of discharge: 05/25/2020 Admission diagnosis: Status post right total knee arthroplasty Discharge diagnosis: Same Attending physician: Dr. Fleming Surgical procedures: Right total knee arthroplasty Brief history: Patient is a 50-year-old female with a history of progressive primary right knee osteoarthritis. At this point patient has failed conservative treatment measures and has opted to proceed with a elective right total knee arthroplasty. Hospital course: Details of patient's surgery can be found in operative report. Patient tolerated the procedure well and was subsequently transported to orthopedic floor. Patient's orthopeidc and medical care was provided daily. Patient had daily laboratory tests performed for evaluation of overall blood counts. Patient had daily physical therapy to include strengthening range of motion as well as education with walker ambulation. Patient was treated with Eliquis 2.5mg for their postoperative DVT prophylaxis during their inpatient stay. Patient was noted to have a relatively uneventful postoperative course. Patient reported satisfactory pain control with oral pain medications by postoperative day 0. Patient showed satisfactory progress with physical therapy. Patient moved steadily through the program and had no difficulty meeting the goals by postoperative day 1. Given patient's otherwise satisfactory course and having met physical therapy goals, plan is to discharge patient home on postoperative day 1. Discharge condition/disposition: Patient will be discharged home in stable condition. Discharge medications: Instructions are given on resumption of patient's normal daily medications per primary care recommendation, in addition patient will be prescribed Percocet 10 mg/325 mg, Colace 100mg, Eliquis 2.5mg. Discharge instructions: 1. Wound care and infection precautions, keep incision dry and covered while showering, no lotions, creams, moisturizers. No soaking, tubs, pools, hottubs. Do not scrub over the incision. 2. Weight-bear as tolerated with walker / cane until follow-up. 3. Ice and elevate when necessary. Do not exceed 20 minutes per hour with ice pack. 4. Utilize compression sleeve until seen at first follow up appointment. 5. Visiting nursing care. 6. Home physical therapy including home CPM. 7. Pain meds and anticoagulants per prescription. 8. Pain medication has potential to cause constipation. Increase oral fluid and fiber intake. Contact primary care provider if you have not had a bowel movement within 48 hours after discharge 9. No anti-inflammatory medication until discussed at first post operative visit, this including Motrin, Aleve, Mobic, Diclofenac. 10. Follow up in office at 2 weeks postop with Misael Smion PA-C 11. Follow up with your primary care doctor 7-10 days after discharge. 12. Contact [facility] with any questions, . Procedures: Right total knee arthroplasty Plan - Discharge Summary Discharge Rx Participant: Yes New Discharge Prescriptions: New Docusate [Colace] 100 mg PO DAILY #30 capsule Apixaban [Eliquis] 2.5 mg PO BID #60 tab oxyCODONE HCL/ACETAMINOPHEN [Percocet 10-325 mg] 1 tab PO Q4HR PRN #42 tab PRN Reason: Pain No Action ALPRAZolam [Xanax] 2 mg PO HS Ibuprofen [Motrin] 800 mg PO Q8HR PRN #60 tab PRN Reason: Pain QUEtiapine [SEROquel] 50 mg PO HS valACYclovir HCL [Valtrex] 1,000 mg PO Q8HR #21 tab Discharge Medication List ALPRAZolam [Xanax] 2 mg PO HS 04/18/16 [History] Ibuprofen [Motrin] 800 mg PO Q8HR PRN #60 tab 04/21/16 [Rx] QUEtiapine [SEROquel] 50 mg PO HS 05/08/16 [History] valACYclovir HCL [Valtrex] 1,000 mg PO Q8HR #21 tab 09/01/19 [Rx] Apixaban [Eliquis] 2.5 mg PO BID #60 tab 05/25/20 [Rx] Docusate [Colace] 100 mg PO DAILY #30 capsule 05/25/20 [Rx] oxyCODONE HCL/ACETAMINOPHEN [Percocet 10-325 mg] 1 tab PO Q4HR PRN #42 tab 05/25/20 [Rx] Follow up Appointment(s)/Referral(s): [facility] [NON-STAFF] - As Needed (Continuous Passive Motion knee machine ) Otto Simon PAC [PHYSICIAN PHARMACY INFORMATICIST] - 06/10/20 1:40 pm Ashish Raphael DO [Primary Care Provider] - 1 Week [facility] Visiting Nurse, [NON-STAFF] - As Needed Patient Instructions/Handouts: *Surgery [facility] - On-Q Pain Pump Discharge Inst ructions, Joint Replacement Surgery (DC) Activity/Diet/Wound Care/Special Instructions: Orthopedic Discharge Instructions: 1. Wound care and infection precautions, keep incision dry and covered while showering, no lotions, creams, moisturizers. No soaking, pools, hot tubs. Do not scrub over incision. 2. Weight-bear as tolerated with walker / cane until follow-up. 3. Ice and elevate when necessary. Do not exceed 20 minutes per hour with ice pack. 4. Utilize compression sleeve until seen at first follow up appointment. 5. Pain meds and anticoagulants per prescription. 6. Pain medication has potential to cause constipation. Increase oral fluid and fiber intake. Contact primary care provider if you have not had a bowel movement within 48 hours after discharge. 7. No anti-inflammatory medication until discussed at first post operative visit, this including Motrin, Aleve, Mobic, Diclofenac. 8. Follow up in office at 2 weeks postop with Misael Siomn PA-C 9. Follow up with your primary care doctor 7-10 days after discharge. 10. Contact [facility] with any questions, . Discharge Disposition: HOME WITH HOME HEALTH SERVICES
== END 2020-05-25 13:10 | disposition home health service (06) ==
LOC: OR 10:56 → 4SSUR 15:45 → OR 05-25 03:01
PROVIDERS: ADMIT Orthopaedic Surgery; ATTEND Orthopaedic Surgery
DX: M17.11 Unilateral primary osteoarthritis, right knee (principal); E11.9 Type 2 diabetes mellitus without complications; F17.200 Nicotine dependence, unspecified, uncomplicated; F41.1 Generalized anxiety disorder; J18.9 Pneumonia, unspecified organism; Z79.84 Long term (current) use of oral hypoglycemic drugs; Z82.49 Family history of ischemic heart disease and other diseases of the circulatory system; Z83.3 Family history of diabetes mellitus; Z86.14 Personal history of Methicillin resistant Staphylococcus aureus infection; Z90.710 Acquired absence of both cervix and uterus; Z98.891 History of uterine scar from previous surgery; Z79.899 Other long term (current) drug therapy; F32.9 Major depressive disorder, single episode, unspecified
CPT/HCPCS: 97110; 97161; 64448; 76942; 85025; 88300; 73560; 27447; G0378; C1713; C1776; J2250; J0171; J1100; J0690 ×2; J2405; J3010; J1885; J1170 ×2; J2795 ×2; J2370; J2704; J0735

== ENCOUNTER → 2021-02-24 | Outpatient (CLI) | payer OTHER ==
--- NOTE | 2021-02-27 11:02 | MM ---
Reason for exam: screening (asymptomatic). Last mammogram was performed 5 years and 8 months ago. History: Family history of breast cancer in paternal grandmother and breast cancer in paternal aunt. Benign excisional biopsy of the right breast, 2011. Reductions of both breasts, 1997. Physical Findings: A clinical breast exam by your physician is recommended on an annual basis and results should be correlated with mammographic findings. MG Screening Mammo w CAD Bilateral CC and MLO view(s) were taken. Prior study comparison: June 24, 2015, bilateral MG diagnostic mammo w CAD RICK. March 24, 2013, CAD bilateral diagnostic mammogram. There are scattered fibroglandular densities. Finding: There are round, regional calcifications in the anterior position of the left breast. There is no discrete abnormality. ASSESSMENT: Benign, BI-RAD 2 RECOMMENDATION: Routine screening mammogram of both breasts in 1 year.
== END | disposition home or self-care (01) ==
LOC: RADMAMWWP 09:40
PROVIDERS: ATTEND Obstetrics & Gynecology
DX: Z12.31 Encounter for screening mammogram for malignant neoplasm of breast (principal); Z80.3 Family history of malignant neoplasm of breast
CPT/HCPCS: 77067

== ENCOUNTER 2021-06-01 18:52 | Emergency (ER) | payer OTHER ==
[2021-06-01] MEDS ORDERED: AMPICILLIN-SULBACTAM 3 GM in SODIUM CHLORIDE 0.9% 100 ML IVPB STA (20:27)
[2021-06-01] MEDS ORDERED: KETOROLAC 15 MG/ML 1 ML VIAL IVP STA (20:27)
--- NOTE | 2021-06-01 20:29 | ED ---
Skin/Abscess/FB HPI - General Source: patient Mode of arrival: ambulatory Limitations: no limitations <Jania Wilkinson - Last Filed: 06/02/21 04:31> <Cinthya Posada - Last Filed: 06/02/21 11:30> - General Chief complaint: Skin/Abscess/Foreign Body Stated complaint: Cat scratch Swollen foot/ankle Time Seen by Provider: 06/01/21 20:05 - History of Present Illness Initial comments: 51-year-old female patient presents to the emergency department today for evaluation of redness and swelling surrounding a cat scratch injury on the left medial ankle. States scratch occurred about 3 days ago when her cat became startled. Denies any cat bite. States today the area became reddened and her leg became swollen. She denies any fever or chills. States the area is painful. Denies taking anything for pain. Denies history of diabetes. Denies any other injuries or concerns. (Jania Wilkinson) - Related Data Home Medications Medication Instructions Recorded Confirmed ALPRAZolam [Xanax] 2 mg PO HS 04/18/16 05/24/20 QUEtiapine [SEROquel] 50 mg PO HS 05/08/16 05/24/20 Previous Rx's Medication Instructions Recorded Ibuprofen [Motrin] 800 mg PO Q8HR PRN #60 tab 04/21/16 valACYclovir HCL [Valtrex] 1,000 mg PO Q8HR #21 tab 09/01/19 Apixaban [Eliquis] 2.5 mg PO BID #60 tab 05/25/20 Docusate [Colace] 100 mg PO DAILY #30 capsule 05/25/20 oxyCODONE HCL/ACETAMINOPHEN 1 tab PO Q4HR PRN #42 tab 05/25/20 [Percocet 10-325 mg] Amoxic-Pot Clav 875-125Mg 1 tab PO Q12HR #20 tablet 06/01/21 [Augmentin 875-125] Fluconazole [Diflucan] 150 mg PO ONCE #2 tab 06/01/21 Allergies Allergy/AdvReac Type Severity Reaction Status Date / Time sulfamethoxazole AdvReac Severe YEAST Verified 06/01/21 19:38 [From Bactrim] INFECTION trimethoprim [From Bactrim] AdvReac Severe YEAST Verified 06/01/21 19:38 INFECTION Review of Systems ROS Other: All systems not noted in ROS Statement are negative. <GenobetteJania Slick - Last Filed: 06/02/21 04:31> ROS Other: All systems not noted in ROS Statement are negative. <SwethaCinthya Evie - Last Filed: 06/02/21 11:30> ROS Statement: Those systems with pertinent positive or pertinent negative responses have been documented in the HPI. Past Medical History Past Medical History: Osteoarthritis (OA) Additional Past Medical History / Comment(s): DX WITH HERAUGUSTUSES 08/2019-NOT ACTIVE AT THIS TIME History of Any Multi-Drug Resistant Organisms: None Reported, MRSA Date of last positivie culture/infection: 08/2019 MDRO Source:: LT RING FINGER Past Surgical History: Section, Hysterectomy, Orthopedic Surgery, Tubal Ligation, Uterine Ablation Additional Past Surgical History / Comment(s): TUBAL SURGERY, GANGLION CYST REMOVED, LEFT KNEE MENISCUS SURGERY. RT KNEE SX X 2 Past Anesthesia/Blood Transfusion Reactions: No Reported Reaction Past Psychological History: Anxiety Smoking Status: Current every day smoker Past Alcohol Use History: Occasional Past Drug Use History: Marijuana - Past Family History Brother(s) Family Medical History: Diabetes Mellitus Sister(s) Family Medical History: Unable to Obtain Daughter(s) Family Medical History: No Reported History Son(s) Family Medical History: No Reported History Father Family Medical History: Cancer Mother Family Medical History: Diabetes Mellitus, Myocardial Infarction ([place]) <Dilshad Wilkinsonina Slick - Last Filed: 06/02/21 04:31> General Exam Limitations: no limitations General appearance: alert, in no apparent distress, other (This is a well- developed, well-nourished adult female patient in no acute distress. Vital signs upon presentation are temperature 98.8F, pulse 89, respirations 24, blood pressure 141/100, pulse ox 97% on room air.) Respiratory exam: Present: normal lung sounds bilaterally. Absent: respiratory distress, wheezes, rales, rhonchi, stridor Cardiovascular Exam: Present: regular rate, normal rhythm, normal heart sounds. Absent: systolic murmur, diastolic murmur, rubs, gallop, clicks GI/Abdominal exam: Present: soft, normal bowel sounds. Absent: distended, tenderness, guarding, rebound, rigid Extremities exam: Present: full ROM, normal capillary refill, other (There is superficial linear abrasion noted to the left medial ankle with surrounding erythema. There is mild soft tissue swelling noted over the lower leg and knee. Skin is otherwise pink, warm, dry. Cap refill less than 3 seconds. Pedal and posttibial pulses 2+.). Absent: tenderness, pedal edema, joint swelling, calf tenderness Neurological exam: Present: alert, oriented X3, CN II-XII intact Psychiatric exam: Present: normal affect, normal mood Skin exam: Present: warm, dry, intact, normal color. Absent: rash <Jania Wilkinson - Last Filed: 06/02/21 04:31> Course Vital Signs 06/01/21 06/01/21 19:35 21:21 Temperature 98.8 F 97 F L Pulse Rate 89 66 Respiratory 24 22 Rate Blood Pressure 141/100 124/79 O2 Sat by Pulse 97 97 Oximetry Medical Decision Making <Jania Wilkinson - Last Filed: 06/02/21 04:31> <Cinthya Posada - Last Filed: 06/02/21 11:30> - Medical Decision Making 51-year-old female patient presents for evaluation of leg swelling and redness with cat scratch. She is afebrile normal vital signs. She is given pain medication to the IV. She was given 1 dose of Unasyn here. She'll be discharged on Augmentin. Instructed to follow-up with her primary care physician for recheck in 1-2 days. Return parameters discussed in detail. She verbalizes understanding and agrees with this plan. Case discussed with my attending Dr. Posada. (Jania Wilkinson) I was available for consultation in the emergency department. The history and physical exam were done by the midlevel provider. I was consulted for this patients care. I reviewed the case with the midlevel provider and based on their presentation of the patient, I agree with the assessment, medical decision making and plan of care as documented. Chart was dictated using SWYF dictation software. Attempts were made to correct any dictation errors however some typographical errors may persist. (Cinthya Posada) Disposition Is patient prescribed a controlled substance at d/c from ED?: No Time of Disposition: 20:29 <Jania Wilkinson - Last Filed: 06/02/21 04:31> <Cinthya Posada - Last Filed: 06/02/21 11:30> Clinical Impression: Cat scratch of left lower leg, Left leg cellulitis Disposition: HOME SELF-CARE Condition: Good Instructions (If sedation given, give patient instructions): Cellulitis (ED) Additional Instructions: Complete antibiotic prescription and full. Take, Motrin for pain control. Follow-up through primary care physician for recheck in 1-2 days. Return to the emergency department for any new, worsening, or concerning symptoms. Prescriptions: Amoxic-Pot Clav 875-125Mg [Augmentin 875-125] 1 tab PO Q12HR #20 tablet Fluconazole [Diflucan] 150 mg PO ONCE #2 tab Referrals: Ashish Raphael DO [Primary Care Provider] - 1-2 days
[2021-06-01 21:22] VITALS: BP 124/79; PULSE 66; RESP 22; TEMP 97
== END 2021-06-01 21:22 | disposition home or self-care (01) ==
LOC: EC 18:52
DX: S80.812A Abrasion, left lower leg, initial encounter (principal); L03.116 Cellulitis of left lower limb; M19.90 Unspecified osteoarthritis, unspecified site; F41.9 Anxiety disorder, unspecified; F17.200 Nicotine dependence, unspecified, uncomplicated; F12.90 Cannabis use, unspecified, uncomplicated; Z90.710 Acquired absence of both cervix and uterus; Z98.51 Tubal ligation status; Z88.1 Allergy status to other antibiotic agents; Z88.2 Allergy status to sulfonamides; W55.03XA Scratched by cat, initial encounter
CPT/HCPCS: 99283; 96365; 96375; J0295; J1885

== ENCOUNTER → 2021-10-19 | Outpatient (CLI) | payer OTHER | END | disposition home or self-care (01) | LOC: LABPAT 13:27 | PROVIDERS: ATTEND Orthopaedic Surgery | DX: Z01.812 Encounter for preprocedural laboratory examination (principal); M17.12 Unilateral primary osteoarthritis, left knee | CPT/HCPCS: 87070 ==

== ENCOUNTER 2021-10-24 05:58 | Day surgery (SDC) | payer OTHER ==
[2021-10-16 16:15] VITALS: BMI 36.9
--- NOTE | 2021-10-23 11:14 | HP ---
HISTORY AND PHYSICAL CHIEF COMPLAINT: Left knee pain. HISTORY OF PRESENT ILLNESS: The patient is a 51-year-old female who presents with progressive left knee pain for the past several years, worsening recently. She notes pain, locking and giving way. She has tried medications, injections, activity modifications and an exercise program, with persistence/worsening of her symptoms. She notes daily pain that limits her. PAST MEDICAL HISTORY: Significant for arthritis, type 2 diabetes. PAST SURGICAL HISTORY: Significant for bilateral knee arthroscopy, right total knee arthroplasty and section. CURRENT MEDICATIONS: Current medications include ibuprofen and tramadol. FAMILY HISTORY: Significant for heart disease, diabetes and cancer. SOCIAL HISTORY: Significant for previous tobacco use. REVIEW OF SYSTEMS: Sixteen-point review of systems otherwise reviewed and is noncontributory. PHYSICAL EXAMINATION: On examination, the patient is approximately 5 feet 6 inches, 228 pounds of endomorphic habitus. HEENT exam is nonfocal. Neck is supple. She has painless passive motion of her left hip. Straight-leg raise is negative. Active motion of left knee: Minus 12 to 110 degrees of flexion. She has a mild effusion. She is tender about the medial joint line. Collaterals are stable, Sabine is negative, Khushi's is equivocal. Her distal neurovascular exam appears intact to the left lower extremity. Weightbearing notch, lateral and Merchant views of the left knee obtained in the office show severe lateral compartment narrowing with [id number] changes and subchondral sclerosis. IMPRESSION: 1. Left knee severe lateral compartment osteoarthrosis. 2. Increased body mass index. 3. Non-insulin dependent diabetes. RECOMMENDATIONS: I talked to the patient at length regarding her condition along with treatment options. At this point she remains quite symptomatic and limited because of pain related to her osteoarthrosis despite conservative measures. After thorough discussion, she opts to proceed with surgery. We will plan to proceed with left total knee arthroplasty. We will institute DVT prophylaxis postoperatively. MMODL / IJN: [id number] /
[~2021-10-24 05:58] MED LIST changes: -ACETAMINOPHEN TAB 500 MG TAB PO ONE; +ACETAMINOPHEN TAB 500 MG TAB PO PRN; -DEXAMETHASONE SOD PHOSPHATE 10 MG/ML 1 ML VIAL IV ONE; -HYDROmorphone 0.5 MG/0.5 ML SYRINGE IVP PRN; -LIDOCAINE 1% (10MG/ML) FOR IV START INTRADERMA PRN; -MELOXICAM 7.5 MG TAB PO ONE; +MELOXICAM 7.5 MG TAB PO PRN; -MIDAZOLAM 2 MG/2 ML VIAL IV PRN; -ROPIVACAINE 246.25 MG, EPINEPHrine 0.5 MG, KETOROLAC 30 MG, cloNIDine HCL/PF 80 MCG, WA... MISCELLANE ONE; -TRANEXAMIC ACID 1,000 MG in SODIUM CHLORIDE 0.9% 100 ML IVPB ONE; +TRANEXAMIC ACID 1,000 MG in SODIUM CHLORIDE 0.9% 100 ML IVPB PRN
[2021-10-24] MEDS ORDERED: LIDOCAINE 1% (10MG/ML) FOR IV START INTRADERMA PRN (05:59)
[2021-10-24] MEDS ORDERED: ONDANSETRON 4 MG/2 ML VIAL IVP ONE (05:59)
[2021-10-24] MEDS ORDERED: MIDAZOLAM 2 MG/2 ML VIAL IV PRN (05:59)
[2021-10-24] MEDS ORDERED: LACTATED RINGERS 1,000 ML IV SCH (05:59)
[2021-10-24] MEDS ORDERED: DEXAMETHASONE SOD PHOSPHATE 4 MG/ML 1 ML VIAL IV ONE (05:59)
[2021-10-24] MEDS ORDERED: HYDROmorphone 0.5 MG/0.5 ML SYRINGE IVP PRN ×2 (07:00→09:30)
[2021-10-24] MEDS ORDERED: ROPIVACAINE 5 MG/ML 30 ML VIAL ONE (07:45)
[2021-10-24] MEDS ORDERED: ePHEDrine 50 MG/ML 1 ML AMP ONE (07:45)
[2021-10-24] MEDS ORDERED: MIDAZOLAM 2 MG/2 ML VIAL ONE (07:45)
[2021-10-24] MEDS ORDERED: PROPOFOL 10 MG/ML 20 ML VIAL IV ONE (07:45)
[2021-10-24] MEDS ORDERED: DEXAMETHASONE SOD PHOSPHATE 4 MG/ML 1 ML VIAL ONE (07:45)
[2021-10-24] MEDS ORDERED: SODIUM CHLORIDE 0.9% 100 ML BAG ONE (07:45)
[2021-10-24] MEDS ORDERED: fentaNYL (PF) 50 MCG/ML 2 ML AMP ONE (07:45)
[2021-10-24] MEDS ORDERED: PHENYLEPHRINE-0.9% NACL SYG 1,000 MCG/10 ML SYRINGE ONE (07:45)
[2021-10-24] MEDS ORDERED: TRANEXAMIC ACID 1,000 MG/10 ML VIAL ONE (07:45)
[2021-10-24] MEDS ORDERED: ceFAZolin 1,000 MG in SODIUM CHLORIDE 0.9% 1,000 ML IRRIGATION ONE (08:24)
[2021-10-24] MEDS ORDERED: LACTATED RINGERS 1,000 ML IV ONE (08:35)
[2021-10-24] MEDS ORDERED: NALOXONE 0.4 MG/ML 1 ML VIAL IV PRN (09:30)
[2021-10-24] MEDS ORDERED: HYDROmorphone 1 MG/ML 1 ML SYRINGE IVP PRN (09:30)
[2021-10-24] MEDS ORDERED: ONDANSETRON 4 MG/2 ML VIAL IVP PRN (09:30)
[2021-10-24] MEDS ORDERED: MAGNESIUM HYDROXIDE 2,400 MG/10 ML CUP PO PRN (09:30)
[2021-10-24] MEDS ORDERED: oxyCODONE-APAP 5-325MG 1 EACH TAB PO PRN (09:32)
[2021-10-24] MEDS ORDERED: oxyCODONE-APAP 10-325MG 1 EACH TAB PO PRN (09:32)
[2021-10-24] MEDS ORDERED: ROPIVACAINE 0.2%-NS ON-Q PUMP 1,090 MG, EMPTY PAIN BALL 1 EACH MISCELLANE PRN (09:50)
[2021-10-24 09:51] VITALS: TEMP 96.8
--- NOTE | 2021-10-24 09:51 | P.OP ---
Date of Procedure: 10/24/21 Preoperative Diagnosis: Left knee severe tricompartmental osteoarthrosis Postoperative Diagnosis: Same Procedure(s) Performed: Left total knee arthroplastycementedposterior stabilized Implants: Depuy Attune size 6 cemented femoral component, size 5 cemented tibial component, 10 mm articular surface, 32 mm cemented patellar component. This is a posterior stabilized implant. Anesthesia: regional, spinal Surgeon: Patrick Fleming Client Solutions Manager #1: Otto Simon Estimated Blood Loss (ml): 50 Pathology: other (Bone fragments) Condition: stable Disposition: PACU Indications for Procedure: The patient is a 51-year-old female presents with progressive left knee pain secondary to osteoarthrosis despite conservative measures. A discussion of the risks and benefits of operative intervention versus continued conservative measures was made with the patient. She opted to proceed with surgery. Operative risks to include infection, neurovascular injury, development of blood clots, possible component loosening/failure and need for subsequent procedures was discussed. Informed consent was obtained. Operative Findings: As below Description of Procedure: The patient was brought to the operating room, and after induction of spinal anesthesia the right lower extremity was prepped and draped in a normal fashion. The tourniquet was inflated to 270 mm marker. A longitudinal incision extending 3 finger breaths above the superior pole of patella extending to the medial aspect the tibial tubercle was then made. The skin and subcutaneous tissues were divided sharply. Electrocautery was used for hemostasis. A medial parapatellar arthrotomy was performed. The medial soft tissues to include the superficial and deep portions of the medial collateral ligament were elevated subperiosteally. The patella was everted. A portion of the retropatellar fat pad was excised sharply. The anterior cruciate ligament was sacrificed. Blunt retractors were placed. A starting hole was made in the distal femur 1 cm anterior to the posterior cruciate ligament origin. An intramedullary femoral guide was then inserted planning on 5 valgus distal cut with 9 mm distal rese ction. The cutting block was pinned in place. The distal cut was then made. The posterior referencing sizing guide was utilized. I felt size 6 narrow was most appropriate. 3 of external rotation was built into the system and verified off the trans-epicondylar axis and the posterior condyles. The cutting block was pinned in place. The anterior, posterior, and chamfer cuts then made. Bone fragments were removed. The intercondylar guide was placed and the notch cut was made with a sagittal saw. The bone block was removed in one fragment. The trial component was then placed. There is good anterior to posterior and medial to lateral fit. The distal peg holes were drilled. The trial component was removed. Attention was then paid towards preparing the proximal femur. An extra medullary guide was utilized in line with the tibial shaft and second metatarsal distally. I planned on 6 mm resection from the medial compartment. The cutting block was pinned in place. The proximal tibial cut was then made. The bone was removed in one fragment. The remnants of the medial and lateral menisci were excised at the capsular junction with electrocautery. The tibia sized most appropriately at size 5. The trial femoral and tibial components were placed along with a 10 mm articular surface. I was able to obtain full flexion and extension with internal and external rotation. After several flexion and extension cycles, the tibial rotation was marked with electrocautery line with the medial one third of the tibial tubercle. Attention was then paid towards preparing the patella. A patella reamer was utilized taking stem to 14 mm of bone stock. A good flush cut was made. The patella sized most appropriately 32 mm. The peg holes were drilled. The trial components placed. I had good patellofemoral tracking with no hands technique. The trial components were then removed. The tibia was prepared in the appropriate rotation with appropriate drill and keel punch. The posterior osteophytes were removed with a curved osteotome. The flexion and extension gaps were checked and felt to be symmetric at 10 mm. A trial components were then removed. The posterior soft tissues were injected with ropivacaine. The bony surfaces were prepared with pulsatile lavage and dried. The tibial component was then cemented place was fully seated. Excess cement was removed. The femoral component cemented place and was fully seated. Excess cement was removed. The trial 10 mm articular surface was placed and the knee was put in full extension. The patella component was cemented place. After the cement had sufficiently hardened, the knee was again taken through a range of motion. Again I was able to obtain full flexion and extension with varus and valgus stress. The trial 10 mm articular surface was removed and the final one inserted. This was fully seated. Care was taken to avoid any soft tissue interposition. Pulsatile lavage was again utilized. The medial parapatellar arthrotomy was closed with #2 Ethibond suture. The tourniquet was deflated with approximately 65 minutes total tourniquet time. Final hemostasis was obtained with the cautery. There was minimal bleeding therefore a deep drain was not placed. The subcutaneous tissues were reapproximated with interrupted 2-0 Vicryl sutures. The skin was reapproximated with 3-0 subcuticular strata fix suture. Skin tape and adhesive was applied. A sterile dressing was applied. The patient was awoken from sedation and transferred to recovery room in good condition. Blood loss was estimated at 50 mL. No complications were incurred. Sponge and needle counts were correct at the end of the case. Misael GONSALVES assisted during the major components of this case to include exposure, bone resection, implantation, and closure.
--- NOTE | 2021-10-24 10:24 | XR ---
EXAMINATION TYPE: XR knee limited LT DATE OF EXAM: 10/24/2021 COMPARISON: NONE TECHNIQUE: Two views submitted HISTORY: Post op FINDINGS: There is a prosthetic knee in near anatomic alignment. There is soft tissue edema and emphysema. IMPRESSION: 1. Postoperative change. Appears in near-anatomic alignment
[2021-10-24 12:51] VITALS: PULSE 79; RESP 18
[2021-10-24 13:42] VITALS: BP 113/77
[2021-10-24] MEDS ORDERED: SENNOSIDES-DOCUSATE SODIUM 1 EACH TAB PO SCH (21:00)
[2021-10-25] MEDS ORDERED: RIVAROXABAN 10 MG TAB PO SCH (09:00)
--- NOTE | 2021-10-25 14:09 | P.ANPRN ---
Procedure Note - Anesthesia - Nerve Block Performed Left Adductor Canal Infusion Time Out Performed: Yes Date of Procedure: 10/24/21 Procedure Start Time: 07:04 Procedure Stop Time: 07:14 Location of Patient: PreOp Indication: Acute Post-Operative Pain, Requested by Surgeon Sedation Type: Sedate with meaningful contact maintained Preparation: Sterile Prep, Sterile Dressing Position: Supine Catheter: Indwelling Needle Types: Pajunk Needle Gauge: 21 Ultrasound used to visualize needle placement: Yes Ultrasound used to observe medication spread: Yes Blood Aspirated: No Pain Paresthesia on Injection Noted: No Resistance on Injection: Normal Image Stored and Saved: Yes Events: Uneventful and Well Tolerated (ropi .5% 20cc)
--- NOTE | 2021-10-25 14:11 | P.ANPRN ---
Procedure Note - Anesthesia - Nerve Block Performed Left iPack Single Time Out Performed: Yes Date of Procedure: 10/24/21 Procedure Start Time: 07:15 Procedure Stop Time: :18 Location of Patient: PreOp Indication: Acute Post-Operative Pain, Requested by Surgeon Sedation Type: Sedate with meaningful contact maintained Preparation: Sterile Prep Position: Supine Needle Types: Pajunk Needle Gauge: 21 Ultrasound used to visualize needle placement: Yes Ultrasound used to observe medication spread: Yes Blood Aspirated: No Pain Paresthesia on Injection Noted: No Resistance on Injection: Normal Image Stored and Saved: Yes Events: Uneventful and Well Tolerated (ropi .5% 25cc plus dexamethasone 4mg)
== END 2021-10-24 14:54 | disposition home health service (06) ==
LOC: OR 05:58
PROVIDERS: ATTEND Orthopaedic Surgery
DX: M17.12 Unilateral primary osteoarthritis, left knee (principal); E11.9 Type 2 diabetes mellitus without complications; Z87.891 Personal history of nicotine dependence; Z82.49 Family history of ischemic heart disease and other diseases of the circulatory system; Z83.3 Family history of diabetes mellitus; Z20.822 Contact with and (suspected) exposure to COVID-19
CPT/HCPCS: 27447; 97110; 97161; 64999; 64448; 76942; 88300; 87635; 73560; C1713 ×2; C1776; J2250; J1100; J0690 ×2; J2405; J3010; J2795 ×2; J2370; J2704

== ENCOUNTER → 2022-04-02 | Outpatient (CLI) | payer OTHER ==
--- NOTE | 2022-04-02 12:07 | USB ---
Reason for Exam: Clinical finding. Last mammogram was performed 1 year(s) and 1 month(s) ago. Indicated Problems: Lump or thickening of the left side for 1 Month(s). Patient History: Menarche at age 13. First Full-Term at age 26. Hysterectomy at age 45. 2011, Benign Excisional Biopsy on the right side. 1997, Bilateral Reduction. Paternal grandmother had breast cancer. Paternal aunt had breast cancer. Risk Values: Fariha 5 year model risk: 1.4%. NCI Lifetime model risk: 11.2%. Prior Study Comparison: 03/24/2013 Bilateral Diagnostic Mammogram, [facility]. 06/24/2015 Bilateral Diagnostic Mammogram, [facility]. 02/24/2021 Bilateral Screening Mammogram, [facility]. Tissue Density: There are scattered fibroglandular densities. Findings: Mammogram No suspicious spiculated or lobular masses, cluster microcalcifications, architectural distortion, or other secondary signs of malignancy are radiographically apparent. The palpable areas identified on the mediolateral oblique view, skin folds at this area. No underlying mammographic abnormality is identified.. Technique: Method: Targeted. Findings: Real-time linear array sonography is performed over left breast attention to the palpable abnormality. At the level of the palpable abnormality is a slightly hypoechoic 3.0 x 0.8 x 2.9 cm well-circumscribed area. This may be a lipoma. Short-term follow-up is recommended to confirm stability. Overall Assessment: Probably benign, BI-RAD 3 Assessment: MG diagnostic mammo w CAD RICK - Bilateral: Benign, BI-RAD 2 - Left. US breast limited LT - Bilateral: Probably benign, BI-RAD 3 - Left. Management: Diagnostic Breast Ultrasound of the left breast in 6 months. A clinical breast exam by your physician is recommended on an annual basis and results should be correlated with mammographic findings. Results were given to the patient verbally at the time of exam. Electronically signed and approved by: Nabeel Gould D.O. Radiologis
== END | disposition home or self-care (01) ==
LOC: RADMAMWWP 08:02
PROVIDERS: ATTEND Family Medicine
DX: R92.8 Other abnormal and inconclusive findings on diagnostic imaging of breast (principal); Z80.3 Family history of malignant neoplasm of breast
CPT/HCPCS: 77066

== ENCOUNTER → 2023-04-24 | Outpatient (CLI) | payer OTHER ==
--- NOTE | 2023-04-24 14:57 | MM ---
Reason for Exam: Clinical finding. Last mammogram was performed 1 year(s) and 1 month(s) ago. Patient History: Menarche at age 13. First Full-Term at age 26. Hysterectomy at age 45. 2011, Benign Excisional Biopsy on the right side. 1997, Bilateral Reduction. Paternal grandmother had breast cancer. Paternal aunt had breast cancer. Risk Values: Fariha 5 year model risk: 1.4%. NCI Lifetime model risk: 11.0%. Tissue Density: There are scattered fibroglandular densities. Findings: Analyzed By CAD. Pattern appears symmetrical and stable. There are a few scattered benign-appearing punctate calcifications present bilaterally. No suspicious abnormality in the posterior left mediolateral view of previous palpable abnormality and no longer identified by the patient at this time. No suspicious groups of microcalcifications, spiculated or lobular masses, architectural distortion or other secondary signs of malignancy are mammographically apparent. Overall Assessment: Incomplete: need additional imaging evaluation, BI-RAD 0 Management: Diagnostic Breast Ultrasound of the left breast. A negative mammogram report should not preclude additional follow up of suspicious palpable abnormalities. Patient should continue monthly self breast exam. A clinical breast exam by your physician is recommended on an annual basis and results should be correlated with mammographic findings. Electronically signed and approved by: Nabeel Gould D.O. Radiologis
--- NOTE | 2023-04-24 15:19 | USB ---
Reason for Exam: Follow-up at short interval from prior study. Patient History: Menarche at age 13. First Full-Term at age 26. Hysterectomy at age 45. 2011, Benign Excisional Biopsy on the right side. 1997, Bilateral Reduction. Paternal grandmother had breast cancer. Paternal aunt had breast cancer. Risk Values: Fariha 5 year model risk: 1.4%. NCI Lifetime model risk: 11.0%. Technique: Method: Targeted. Prior Study Comparison: 06/24/2015 Bilateral Diagnostic Mammogram, [facility]. 02/24/2021 Bilateral Screening Mammogram, [facility]. 04/02/2022 Bilateral MG diagnostic mammo w CAD RICK, [facility]. Findings: The upper outer quadrant of the left breast, the area of palpable concern of the left breast, the axilla of the left breast and the retroareolar of the left breast were scanned. There is a iso to slightly hypoechoic area measuring 2.7 x 0.7 x 2.5 cm was present on the prior examination may be a small lipoma. This is at the expected region of the palpable abnormality. This is stable from comparison. No additional suspicious abnormalities evident by ultrasound. Overall Assessment: Benign, BI-RAD 2 Management: Screening Mammogram of both breasts in 1 year. A clinical breast exam by your physician is recommended on an annual basis and results should be correlated with mammographic findings. This exam should not preclude additional follow-up of suspicious palpable abnormalities. Results were given to the patient verbally at the time of exam. Electronically signed and approved by: Nabeel Gould D.O. Radiologis
--- NOTE | 2023-04-25 09:32 | BD ---
EXAMINATION TYPE: Axial Bone Density DATE OF EXAM: 04/24/2023 CLINICAL HISTORY: 53 years old Female. ICD-10 CODE: N95.1 Post menopausal symptoms Height: 66.5 Weight: 224.6 FRAX RISK QUESTIONS: Alcohol (3 or more units per day): no Family History (Parent hip fracture): no Glucocorticoids (More than 3mos): no History of Fracture in Adulthood: no Secondary Osteoporosis: 1. Type 1 Diabetes: no 2. Hyperthyroidism: no 3. Menopause before 45: no 4. Malnutrition: no 5. Chronic liver disease: no Rheumatoid Arthritis: no Current Tobacco Use: yes RISK FACTORS HISTORY OF: Hip Fracture (Right/Left): no Spine Fracture: no History of Wrist Fracture: no Surgery to Spine/Hip(right/left)/Wrist (right/left): no Family History of Osteoporosis: no Active: yes Diet low in dairy products/other sources of calcium: no Postmenopausal woman: yes Take estrogen and/or progesterone medications: no Lost more than 2 inches in height since high school: no Frequent falls: no Poor Health: no Hyperparathyroidism: no Adrenal Insufficiency: no MEDICATIONS: Prednisone or other steroids: no Thyroid Medications: no Osteoporosis Medications: no Additional Medications: Metformin Additional History: EXAM MEASUREMENTS: Bone mineral densitometry was performed using the [employer] System. Bone mineral density as measured about the Lumbar spine is: ----- L1-L4(G/cm2): 1.449 T Score Values are as follows: ----- L1: 3.0 ----- L2: 2.3 ----- L3: 2.3 ----- L4: 1.5 ----- L1-L4: 2.2 Z Score Values are as follows: ----- L1: 2.4 ----- L2: 1.8 ----- L3: 1.8 ----- L4: 1.0 ----- L1-L4: 1.7 Baseline Study Bone mineral density about the R hip (g/cm2): 0.981 Bone mineral density about the L hip (g/cm2): 1.062 T Score values are as follows: -----R Neck: -0.2 -----L Neck: 0.1 -----R Total: -0.2 -----L Total: 0.4 Z Score values are as follows: -----R Neck: 0.0 -----L Neck: 0.3 -----R Total: -0.5 -----L Total: 0.2 Baseline Study FRAX%s: The graph provided illustrates a 4.1% chance for a major osteoporotic fx and a 0.1% chance fo r the hips probability for fx in 10 years time. IMPRESSION: Normal (Values between +1 and -1 indicate normal bone mass). Consider repeating this study in 5 year s or sooner if there is some new clinical indication. NOTE: T-SCORE=SD OF THE YOUNG ADULT MEAN.
== END | disposition home or self-care (01) ==
LOC: RADMAMWWP 14:24
PROVIDERS: ATTEND Obstetrics & Gynecology
DX: R92.8 Other abnormal and inconclusive findings on diagnostic imaging of breast (principal); N95.1 Menopausal and female climacteric states; Z80.3 Family history of malignant neoplasm of breast
CPT/HCPCS: 77080; 77066; 76642; G0279; 77062

== ENCOUNTER 2023-06-04 19:55 | Emergency (ER) | payer OTHER ==
--- NOTE | 2023-06-04 20:04 | ED ---
SOB HPI - General Source: patient, RN notes reviewed Mode of arrival: ambulatory Limitations: no limitations - History of Present Illness MD Complaint: shortness of breath <Caroline Rivera - Last Filed: 06/04/23 20:05> - General Source: patient, RN notes reviewed, old records reviewed <Alberto Katz - Last Filed: 06/04/23 22:31> - General Chief Complaint: Shortness of Breath Stated Complaint: SOB Time Seen by Provider: 06/04/23 20:01 - History of Present Illness Initial Comments: This is a 53 year old female who presents to the emergency department for shortness of breath. States that she woke up at around 3am gasping for air, and since then has not been able to take a deep breath. Unsure if this is related to anxiety or something else. States that she did also just recover from COVID a several weeks ago. Also notes feeling chest heaviness. (Caroline Rivera) Patient is a 53-year-old female who presents emergency Department complaining of shortness of breath. Started suddenly this morning at 3 AM. Patient has a history of anxiety, and has been off Xanax since November. States she thinks it may be anxiety but is uncertain. Denies any productive cough. Denies any fe vers, chills. Denies any abdominal pain, nausea, vomiting. Endorses a chest heaviness sensation which she gets when she is anxious as well as dyspnea. States has been pretty constant throughout the day today. No known association with exertion. No history of blood clots. No recent long distant travel. No lower extremity edema. No orthopnea. No PND. No cardiac history. Presents for further evaluation at this time. She is asking for Xanax, as she does believe it is related to anxiety. Patient started as a quick note. (Alberto Katz) - Related Data Home Medications Medication Instructions Recorded Confirmed ALPRAZolam [Xanax] 2 mg PO HS 04/18/16 10/24/21 QUEtiapine [SEROquel] 50 mg PO HS 05/08/16 10/24/21 Losartan/Hydrochlorothiazide 1 tab PO DAILY 10/23/21 10/24/21 [Hyzaar 100-12.5 Tablet] Previous Rx's Medication Instructions Recorded Ibuprofen [Motrin] 800 mg PO Q8HR PRN #60 tab 04/21/16 Aspirin 325 mg PO DAILY #30 tab 10/24/21 Docusate [Colace] 100 mg PO DAILY #30 capsule 10/24/21 oxyCODONE-APAP 10-325MG [Percocet 1 tab PO Q6HR PRN #28 tab 10/24/21 10-325 mg] ALPRAZolam [Xanax] 1 mg PO DAILY 3 Days #3 tab 06/04/23 Allergies Allergy/AdvReac Type Severity Reaction Status Date / Time sulfamethoxazole AdvReac Severe YEAST Verified 06/04/23 20:04 [From Bactrim] INFECTION trimethoprim [From Bactrim] AdvReac Severe YEAST Verified 06/04/23 20:04 INFECTION Review of Systems ROS Other: All systems not noted in ROS Statement are negative. <Caroline Rivera - Last Filed: 06/04/23 20:05> ROS Other: All systems not noted in ROS Statement are negative. <Alberto Katz - Last Filed: 06/04/23 22:31> ROS Statement: Those systems with pertinent positive or pertinent negative responses have been documented in the HPI. Review of Systems: CONST: Denies fever EYES: Denies blurry vision ENT: Denies nasal congestion C/V: Denies Chest pain RESP: Endorses shortness of breath GI: Denies abdominal pain : Denies dysuria SKIN: Denies rash. MSK: Denies joint pain. NEURO: Denies headache (Alberto Katz) Past Medical History Past Medical History: Osteoarthritis (OA) Additional Past Medical History / Comment(s): DX WITH HERMAINE 08/2019-NOT ACTIVE AT THIS TIME History of Any Multi-Drug Resistant Organisms: None Reported, MRSA Date of last positivie culture/infection: 08/2019 MDRO Source:: LT RING FINGER Past Surgical History: Section, Hysterectomy, Orthopedic Surgery, Tubal Ligation, Uterine Ablation Additional Past Surgical History / Comment(s): TUBAL SURGERY, GANGLION CYST REMOVED, LEFT KNEE MENISCUS SURGERY. RT KNEE SX X 2 Past Anesthesia/Blood Transfusion Reactions: No Reported Reaction Smoking Status: Current every day smoker Additional Past Alcohol Use History / Comment(s): STARTED SMOKING 1990,SMOKES APPROX 1/2 PACK PER DAY. SMOKING FOR 25 YEARS Additional Drug Use History / Comment(s): LAST USED MARIJUANA OVER 8 WEEKS AGO.- KNOWS TO REFRAIN FROM USE FOR AT LEAST 24 HOURS PRIOR TO PROCEDURE - Past Family History Brother(s) Family Medical History: Diabetes Mellitus Sister(s) Family Medical History: Unable to Obtain Daughter(s) Family Medical History: No Reported History Son(s) Family Medical History: No Reported History Father Family Medical History: Cancer Mother Family Medical History: Diabetes Mellitus, Myocardial Infarction ([place]) <Caroline Rivera - Last Filed: 06/04/23 20:05> General Exam <Caroline Rivera - Last Filed: 06/04/23 20:05> <Alberto Katz - Last Filed: 06/04/23 22:31> - General Exam Comments Initial Comments: Visual Physical Exam Vital signs reviewed General: Well-appearing, nontoxic, no acute distress. Head: Normocephalic, atraumatic Eyes: PERRLA, EOMI ENT: Airway patent Chest: Nonlabored breathing Skin: No visual rash, normal skin tone Neuro: Alert and oriented 3 Musculoskeletal: No gross abnormalities I performed the QuickNote portion of this chart. Signed Caroline Rivera PA-C. (Caroline Rivera) General: Appears in no acute distress. HEAD: Normal with no signs of head trauma. EYES: PERRLA, EOMI, conjunctiva normal, no discharge. ENT: Hearing grossly intact, normal oropharynx. RESPIRATORY: Clear breath sounds bilaterally. No wheezes, rales, or rhonchi. C/V: Regular rate and rhythm. S1 and S2 auscultated, no edema, peripheral pulses 2+ and intact throughout ABD: Abd is soft, nontender, nondistended EXT: Normal range of motion, no obvious deformity SKIN: No rashes or lesions observed on exposed skin. NEURO: Alert and oriented x 4. (Alberto Katz) Course Vital Signs 06/04/23 06/04/23 06/04/23 20:01 21:14 22:19 Temperature 98.3 F 98.1 F Pulse Rate 74 64 68 Respiratory 18 16 16 Rate Blood Pressure 136/83 110/64 110/68 O2 Sat by Pulse 100 98 100 Oximetry Medical Decision Making - Lab Data Result diagrams: 06/04/23 20:24 06/04/23 20:24 - EKG Data -: EKG Interpreted by Me <Alberto Katz - Last Filed: 06/04/23 22:31> - Medical Decision Making Was pt. sent in by a medical professional or institution (, MAJOR, SMOCKER, urgent care, hospital, or [facility]...) When possible be specific @ -No Did you speak to anyone other than the patient for history (EMS, parent, family, police, friend...)? What history was obtained from this source @ -No Did you review nursing and triage notes (agree or disagree)? Why? @ -I reviewed and agree with nursing and triage notes Were old charts reviewed (outside hosp., previous admission, EMS record, old EKG, old radiological studies, urgent care reports/EKG's, [facility] records)? Report findings @ -No old charts were reviewed Differential Diagnosis (chest pain, altered mental status, abdominal pain women, abdominal pain men, vaginal bleeding, weakness, fever, dyspnea, syncope, headache, dizziness, GI bleed, back pain, seizure, CVA, palpatations, mental health, musculoskeletal)? @ -Differential Dyspnea: Coronary syndrome, arrhythmia, tamponade, asthma, COPD, pulmonary embolism, pneumonia, pneumothorax, pulmonary effusion, anaphylaxis, diabetic ketoacidosis, flailed chest, pulmonary contusion, diaphragmatic rupture, anemia, neuromuscular, this is not meant to be an all-inclusive list. EKG interpreted by me (3pts min.). @ -As above X-rays interpreted by me (1pt min.). @ -Chest X-ray reveals no obvious acute cardiopulmonary process. CT interpreted by me (1pt min.). @ -None done U/S interpreted by me (1pt. min.). @ -None done What testing was considered but not performed or refused? (CT, X-rays, U/S, labs)? Why? @ -None What meds were considered but not given or refused? Why? @ -None Did you discuss the management of the patient with other professionals (professionals i.e. MAJOR Salgado, SMOCKER, lab, RT, psych nurse, social and human services assistant, boatbuilder wood, teacher, space officer, telehealth case manager)? Give summary @ -No Was smoking cessation discussed for >3mins.? @ -No Was critical care preformed (if so, how long)? @ -No Were there social determinants of health that impacted care today? How? (Homelessness, low income, unemployed, alcoholism, drug addiction, transportation, low edu. Level, literacy, decrease access to med. care, halfway, rehab)? @ -No Was there de-escalation of care discussed even if they declined (Discuss DNR or withdrawal of care, Hospice)? DNR status @ -No What co-morbidities impacted this encounter? (DM, HTN, Smoking, COPD, CAD, Cancer, CVA, ARF, Chemo, Hep., AIDS, mental health diagnosis, sleep apnea, morbid obesity)? @ -None Was patient admitted / discharged? Hospital course, mention meds given and route, prescriptions, significant lab abnormalities, going to OR and other pertinent info. @ -Based on the patient's presentation and physical exam, she does strike me as someone experiencing anxiety or a mild panic attack at this time but cannot rule out other etiologies such as cardiac or pulmonary at this time. Patient was started as a quick note workup, and we will obtain cardiopulmonary labs, EKG, chest x-ray. She will receive 324 millions of aspirin as well as Xanax. Vital signs within acceptable limits. She was in agreement with this plan. EKG showed no signs of acute ischemia. Chest x-ray within acceptable limits. Patient's labs are within acceptable limits including a normal screening d- dimer, undetectable troponin, normal BNP. Vital signs negative. Slightly e levated blood sugar of 142. Remainder of the labs are within acceptable limits. I spoke with the patient and symptoms have resolved following the Xanax. We both agree this is likely her anxiety was causing her symptoms. Heart scores low. She'll be discharged home at this time. She was in agreement this plan. We discussed her metformin use that she is supposed to be using it on a daily basis. She stopped as it was causing stomach pain. I did recommend she at least attempt a half dose of her prescribed dose and follow up with her physician. She was in agreement this plan. She'll also be given a prescription for 3 days of Xanax. She was in agreement this plan. She'll follow up appo intment with their PCP in the next 2 weeks. I will provide the patient with a prescription for Xanax. I instructed the patient to follow up with their PCP in the next 1-3 days . I explained that the patient should return to the emergency department if they experience any worsening symptoms. Strict return precautions were discussed with the patient. The patient expressed understanding of these instructions. I answered all questions that the patient had. The patient was discharged home in good condition with their prescriptions and follow up information. Undiagnosed new problem with uncertain prognosis? @ -No Drug Therapy requiring intensive monitoring for toxicity (Heparin, Nitro, Insulin, Cardizem)? @ -No Were any procedures done? @ -No Diagnosis/symptom? @ -Anxiety Acute, or Chronic, or Acute on Chronic? @ -Acute Uncomplicated (without systemic symptoms) or Complicated (systemic symptoms)? @ -Complicated Side effects of treatment? @ -none Exacerbation, Progression, or Severe Exacerbation] @ -no Poses a threat to life or bodily function? @ -no (Alberto Katz) - Lab Data Lab Results 06/04/23 06/04/23 06/04/23 Range/Units 20:00 20:05 20:24 WBC 9.4 (3.8-10.6) k/uL RBC 4.85 (3.80-5.40) m/uL Hgb 14.4 (11.4-16.0) gm/dL Hct 44.0 (34.0-46.0) % MCV 90.7 (80.0-100.0) fL MCH 29.8 (25.0-35.0) pg MCHC 32.8 (31.0-37.0) g/dL RDW 13.2 (11.5-15.5) % Plt Count 283 (150-450) k/uL MPV 8.9 Neutrophils % 63 % Lymphocytes % 29 % Monocytes % 4 % Eosinophils % 2 % Basophils % 0 % Neutrophils # 5.9 (1.3-7.7) k/uL Lymphocytes # 2.8 (1.0-4.8) k/uL Monocytes # 0.4 (0-1.0) k/uL Eosinophils # 0.2 (0-0.7) k/uL Basophils # 0.0 (0-0.2) k/uL PT (9.0-12.0) sec INR (<1.2) APTT (22.0-30.0) sec D-Dimer (<0.60) mg/L FEU Sodium (137-145) mmol/L Potassium (3.5-5.1) mmol/L Chloride (98-107) mmol/L Carbon Dioxide (22-30) mmol/L Anion Gap mmol/L BUN (7-17) mg/dL Creatinine (0.52-1.04) mg/dL Est GFR (CKD-EPI)AfAm (>60 ml/min/1.73 sqM) Est GFR (CKD-EPI)NonAf (>60 ml/min/1.73 sqM) Glucose (74-99) mg/dL POC Glucose (mg/dL) 142 H (70-110) mg/dL POC Glu Senior [employer] Software Developer ID Jovan Armas Plasma Lactic Acid Raad 1.5 (0.7-2.0) mmol/L Calcium (8.4-10.2) mg/dL Total Bilirubin (0.2-1.3) mg/dL AST (14-36) U/L ALT (4-34) U/L Alkaline Phosphatase (38-126) U/L Troponin I (0.000-0.034) ng/mL NT-Pro-B Natriuret Pep pg/mL Total Protein (6.3-8.2) g/dL Albumin (3.5-5.0) g/dL Influenza Type A (PCR) (Not Detectd) Influenza Type B (PCR) (Not Detectd) RSV (PCR) (Not Detectd) SARS-CoV-2 (PCR) (Not Detectd) 06/04/23 06/04/23 06/04/23 Range/Units 20:24 20:24 20:24 WBC (3.8-10.6) k/uL RBC (3.80-5.40) m/uL Hgb (11.4-16.0) gm/dL Hct (34.0-46.0) % MCV (80.0-100.0) fL MCH (25.0-35.0) pg MCHC (31.0-37.0) g/dL RDW (11.5-15.5) % Plt Count (150-450) k/uL MPV Neutrophils % % Lymphocytes % % Monocytes % % Eosinophils % % Basophils % % Neutrophils # (1.3-7.7) k/uL Lymphocytes # (1.0-4.8) k/uL Monocytes # (0-1.0) k/uL Eosinophils # (0-0.7) k/uL Basophils # (0-0.2) k/uL PT 9.9 (9.0-12.0) sec INR 0.9 (<1.2) APTT 26.0 (22.0-30.0) sec D-Dimer 0.52 (<0.60) mg/L FEU Sodium 138 (137-145) mmol/L Potassium 4.2 (3.5-5.1) mmol/L Chloride 105 (98-107) mmol/L Carbon Dioxide 22 (22-30) mmol/L Anion Gap 11 mmol/L BUN 14 (7-17) mg/dL Creatinine 0.73 (0.52-1.04) mg/dL Est GFR (CKD-EPI)AfAm >90 (>60 ml/min/1.73 sqM) Est GFR (CKD-EPI)NonAf >90 (>60 ml/min/1.73 sqM) Glucose 128 H (74-99) mg/dL POC Glucose (mg/dL) (70-110) mg/dL POC Glu Senior [employer]p Software Developer ID Plasma Lactic Acid Raad (0.7-2.0) mmol/L Calcium 9.4 (8.4-10.2) mg/dL Total Bilirubin 0.4 (0.2-1.3) mg/dL AST 23 (14-36) U/L ALT 17 (4-34) U/L Alkaline Phosphatase 102 (38-126) U/L Troponin I <0.012 (0.000-0.034) ng/mL NT-Pro-B Natriuret Pep 131 pg/mL Total Protein 8.2 (6.3-8.2) g/dL Albumin 4.5 (3.5-5.0) g/dL Influenza Type A (PCR) (Not Detectd) Influenza Type B (PCR) (Not Detectd) RSV (PCR) (Not Detectd) SARS-CoV-2 (PCR) (Not Detectd) 06/04/23 Range/Units 20:24 WBC (3.8-10.6) k/uL RBC (3.80-5.40) m/uL Hgb (11.4-16.0) gm/dL Hct (34.0-46.0) % MCV (80.0-100.0) fL MCH (25.0-35.0) pg MCHC (31.0-37.0) g/dL RDW (11.5-15.5) % Plt Count (150-450) k/uL MPV Neutrophils % % Lymphocytes % % Monocytes % % Eosinophils % % Basophils % % Neutrophils # (1.3-7.7) k/uL Lymphocytes # (1.0-4.8) k/uL Monocytes # (0-1.0) k/uL Eosinophils # (0-0.7) k/uL Basophils # (0-0.2) k/uL PT (9.0-12.0) sec INR (<1.2) APTT (22.0-30.0) sec D-Dimer (<0.60) mg/L FEU Sodium (137-145) mmol/L Potassium (3.5-5.1) mmol/L Chloride (98-107) mmol/L Carbon Dioxide (22-30) mmol/L Anion Gap mmol/L BUN (7-17) mg/dL Creatinine (0.52-1.04) mg/dL Est GFR (CKD-EPI)AfAm (>60 ml/min/1.73 sqM) Est GFR (CKD-EPI)NonAf (>60 ml/min/1.73 sqM) Glucose (74-99) mg/dL POC Glucose (mg/dL) (70-110) mg/dL POC Glu Senior [employer]p Software Developer ID Plasma Lactic Acid Raad (0.7-2.0) mmol/L Calcium (8.4-10.2) mg/dL Total Bilirubin (0.2-1.3) mg/dL AST (14-36) U/L ALT (4-34) U/L Alkaline Phosphatase (38-126) U/L Troponin I (0.000-0.034) ng/mL NT-Pro-B Natriuret Pep pg/mL Total Protein (6.3-8.2) g/dL Albumin (3.5-5.0) g/dL Influenza Type A (PCR) Not Detected (Not Detectd) Influenza Type B (PCR) Not Detected (Not Detectd) RSV (PCR) Not Detected (Not Detectd) SARS-CoV-2 (PCR) Not Detected (Not Detectd) - EKG Data EKG Comments: 12-lead Electrocardiogram Interpretation Note EKG was reviewed and interpreted by myself. 12-lead ECG performed at 2010 is interpreted by me as revealing sinus bradycardia at a rate of 58 beats per minute. [place] is normal. There were no ST or T wave abnormalities to suggest myocardial ischemia or injury. R wave progression across the precordium was satisfactory. By my interpretation this EKG is non-diagnostic for acute ischemia. (Alberto Katz) Disposition <Caroline Rivera - Last Filed: 06/04/23 20:05> Is patient prescribed a controlled substance at d/c from ED?: No Time of Disposition: 22:09 <Alberto Katz - Last Filed: 06/04/23 22:31> Clinical Impression: Anxiety Disposition: HOME SELF-CARE Condition: Good Instructions (If sedation given, give patient instructions): Anxiety (ED) Prescriptions: ALPRAZolam [Xanax] 1 mg PO DAILY 3 Days #3 tab Referrals: Ashish Raphael DO [Primary Care Provider] - 1-2 days
[2023-06-04 20:06] LABS: Glucose,Whole Blood 142 mg/dL (70-110)
--- NOTE | 2023-06-04 20:57 | XR ---
EXAMINATION TYPE: XR chest 2V DATE OF EXAM: 06/04/2023 COMPARISON: 05/20/20 HISTORY: Shortness of breath TECHNIQUE: Frontal and lateral views of the chest are obtained. FINDINGS: Scattered senescent parenchymal changes noted. No evidence for infiltrate. No evidence for atelectasis. Heart size is stable. Mediastinal structures are stable and grossly unremarkable. No evidence for hilar prominence. Degenerative changes dorsal spine. IMPRESSION: 1. No evidence for acute pulmonary disease.
[2023-06-04 21:07] LABS: Basophils % (A) 0 %; Eosinophils # (A) 0.2 k/uL (0-0.7); Eosinophils % (A) 2 %; HGB 14.4 gm/dL (11.4-16.0); Lymphocytes # (A) 2.8 k/uL (1.0-4.8); Lymphocytes % (A) 29 %; MCH 29.8 pg (25.0-35.0); MCHC 32.8 g/dL (31.0-37.0); MCV 90.7 fL (80.0-100.0); Mean Platelet Volume 8.9; Monocytes # (A) 0.4 k/uL (0-1.0); Monocytes % (A) 4 %; Neutrophils # (A) 5.9 k/uL (1.3-7.7); Neutrophils % (A) 63 %; Platelet Count 283 k/uL (150-450); RBC 4.85 m/uL (3.80-5.40); RDW 13.2 % (11.5-15.5); WBC 9.4 k/uL (3.8-10.6)
[2023-06-04 21:15] VITALS: RESP 16
[2023-06-04 21:17] LABS: ALT 17 U/L (4-34); AST 23 U/L (14-36); African American GFR (CKD) >90 (>60 ml/min/1.73 sqM); Albumin 4.5 g/dL (3.5-5.0); Alkaline Phosphatase 102 U/L (38-126); Anion Gap 11 mmol/L; Blood Urea Nitrogen 14 mg/dL (7-17); Calcium 9.4 mg/dL (8.4-10.2); Carbon Dioxide 22 mmol/L (22-30); Chloride 105 mmol/L (98-107); Glucose 128 mg/dL (74-99); Non-African American GFR(CKD) >90 (>60 ml/min/1.73 sqM); Potassium 4.2 mmol/L (3.5-5.1); Sodium 138 mmol/L (137-145); Total Bilirubin 0.4 mg/dL (0.2-1.3); Total Protein 8.2 g/dL (6.3-8.2)
[2023-06-04 21:22] LABS: INR 0.9 (<1.2); Prothrombin Time 9.9 sec (9.0-12.0)
[2023-06-04 21:26] LABS: NT-Pro-B-Type Natriuretic Pept 131 pg/mL
[2023-06-04] MEDS ORDERED: ASPIRIN 81 MG PO STA (21:32)
[2023-06-04] MEDS ORDERED: ALPRAZolam 0.5 MG TAB PO STA (21:32)
[2023-06-04 22:21] VITALS: BP 110/68; PULSE 68; TEMP 98.1
== END 2023-06-04 22:26 | disposition home or self-care (01) ==
LOC: EC 19:55
DX: F41.9 Anxiety disorder, unspecified (principal); F17.210 Nicotine dependence, cigarettes, uncomplicated; Z20.822 Contact with and (suspected) exposure to COVID-19; Z79.899 Other long term (current) drug therapy; Z88.2 Allergy status to sulfonamides; Z88.8 Allergy status to other drugs, medicaments and biological substances
CPT/HCPCS: 36415; 71046; 80053; 83605; 83880; 84484; 85025; 85379; 85610; 85730; 87636; 93005; 99285

== ENCOUNTER 2024-03-22 13:11 | Emergency (ER) | payer OTHER ==
[2024-03-22 13:39] VITALS: BP 121/80; PULSE 80; RESP 18; TEMP 98
--- NOTE | 2024-03-22 14:30 | ED ---
Skin/Abscess/FB HPI - General Chief complaint: Recheck/Abnormal Lab/Rx Stated complaint: Tick bite in back, swollen lymphnode Time Seen by Provider: 03/22/24 14:15 Source: patient Mode of arrival: ambulatory Limitations: no limitations - History of Present Illness Initial comments: This is a 54-year-old female who presents to the emergency department for a tick bite. States that she was camping over weekend and shortly afterwards noticed a tick on her back. Believes that it was stuck on for at least 4 days. She now has a scab, but is concerned that she did not get all of the tick out. Given the location of the bite, she is not able to visualize this herself. - Related Data Home Medications Medication Instructions Recorded Confirmed ALPRAZolam [Xanax] 2 mg PO HS 04/18/16 10/24/21 QUEtiapine [SEROquel] 50 mg PO HS 05/08/16 10/24/21 Losartan/Hydrochlorothiazide 1 tab PO DAILY 10/23/21 10/24/21 [Hyzaar 100-12.5 Tablet] Previous Rx's Medication Instructions Recorded Ibuprofen [Motrin] 800 mg PO Q8HR PRN #60 tab 04/21/16 Aspirin 325 mg PO DAILY #30 tab 10/24/21 Docusate [Colace] 100 mg PO DAILY #30 capsule 10/24/21 oxyCODONE-APAP 10-325MG [Percocet 1 tab PO Q6HR PRN #28 tab 10/24/21 10-325 mg] ALPRAZolam [Xanax] 1 mg PO DAILY 3 Days #3 tab 06/04/23 Doxycycline Hyclate 100 mg PO BID 10 Days #20 tab 03/22/24 Allergies Allergy/AdvReac Type Severity Reaction Status Date / Time sulfamethoxazole AdvReac Severe YEAST Verified 03/22/24 13:39 [From Bactrim] INFECTION trimethoprim [From Bactrim] AdvReac Severe YEAST Verified 03/22/24 13:39 INFECTION Review of Systems ROS Statement: Those systems with pertinent positive or pertinent negative responses have been documented in the HPI. ROS Other: All systems not noted in ROS Statement are negative. Past Medical History Past Medical History: Diabetes Mellitus, Osteoarthritis (OA) Additional Past Medical History / Comment(s): DX WITH DALIA 08/2019-NOT ACTIVE AT THIS TIME History of Any Multi-Drug Resistant Organisms: None Reported, MRSA Date of last positivie culture/infection: 08/2019 MDRO Source:: LT RING FINGER Past Surgical History: Section, Hysterectomy, Orthopedic Surgery, Tubal Ligation, Uterine Ablation Additional Past Surgical History / Comment(s): TUBAL SURGERY, GANGLION CYST REMOVED, LEFT KNEE MENISCUS SURGERY. RT KNEE SX X 2 Past Anesthesia/Blood Transfusion Reactions: No Reported Reaction Past Psychological History: Anxiety Smoking Status: Current every day smoker Past Alcohol Use History: Occasional Past Drug Use History: Marijuana - Past Family History Brother(s) Family Medical History: Diabetes Mellitus Sister(s) Family Medical History: Unable to Obtain Daughter(s) Family Medical History: No Reported History Son(s) Family Medical History: No Reported History Father Family Medical History: Cancer Mother Family Medical History: Diabetes Mellitus, Myocardial Infarction ([place]) General Exam Limitations: no limitations General appearance: alert, in no apparent distress Head exam: Present: atraumatic, normocephalic, normal inspection Respiratory exam: Present: normal lung sounds bilaterally. Absent: respiratory distress, wheezes, rales, rhonchi, stridor Cardiovascular Exam: Present: regular rate, normal rhythm, normal heart sounds. Absent: systolic murmur, diastolic murmur, rubs, gallop, clicks Back exam: Present: other (There is a scab to the right side of the patient's back with a surrounding rash containing a dark border with a product marketer center.) Neurological exam: Present: alert, oriented X3, CN II-XII intact Psychiatric exam: Present: normal affect, normal mood Course Vital Signs 03/22/24 13:37 Temperature 98 F Pulse Rate 80 Respiratory 18 Rate Blood Pressure 121/80 O2 Sat by Pulse 97 Oximetry Medical Decision Making - Medical Decision Making This is a 54 year old female who presents to the emergency department for a tick bite and a rash. Was pt. sent in by a medical professional or institution? @ -No Did you speak to anyone other than the patient for history? @ -No Did you review nursing and triage notes? @ -Yes, and I agree, it is accurate with regards to the patient's symptoms. Were old charts reviewed? @ -No Differential Diagnosis? @ -Differential Rash: Roseola, measles, Lyme disease, erythema multiforme, cellulitis, toxic shock syndrome, Otis Rito syndrome, Kawasaki disease, cailin mountain spotted fever, contact dermatitis, allergic dermatitis, measles, mumps, rubella, varicella, meningococcal disease, drug reaction, coxsackievirus, This is not meant to be an all-inclusive list. EKG interpreted by me (3pts min.)? @ -Not obtained X-rays interpreted by me (1pt min.)? @ -Not obtained CT interpreted by me (1pt min.)? @ -Not obtained U/S interpreted by me (1pt. min.)? @ -Not obtained What testing was considered but not performed? (CT, X-rays, U/S, labs)? Why? @ -None What meds were considered but not given? Why? @ -None Did you discuss the management of the patient with other professionals? @ -No Did you reconcile home meds? @ -No Was smoking cessation discussed for >3mins.? @ -I discussed smoking cessation for greater than 3 minutes. The risk of smoking were discussed with the patient including but not limited to risks of cancer, stroke, coronary artery disease and COPD. Also discussed with patient were multiple methods of quitting smoking. Lastly we discussed the financial cost of smoking. Was critical care preformed (if so, how long)? @ -No Were there social determinants of health that impacted care today? How? (Homelessness, low income, unemployed, alcoholism, drug addiction, transportation, low edu. Level, literacy, decrease access to med. care, shelter, rehab)? @ -No Was there de-escalation of care discussed even if they declined? (Discuss DNR or withdrawal of care, Hospice)? @ -No What co-morbidities impacted this encounter? (DM, HTN, Smoking, COPD, CAD, Cancer, CVA, Hep., AIDS, mental health diagnosis, sleep apnea, morbid obesity)? @ -DM, smoking Was patient admitted / discharged? @ -Discharged. Physical examination demonstrates a scab where the patient had a tick bite with a rash surrounding it. The rash is similar to a bull's-eye pattern with a product marketer center and dark border. Will start the patient on doxycycline. Prescription for 10-day course was provided. Advised follow-up with her primary care provider. Undiagnosed new problem with uncertain prognosis? @ -None Drug Therapy requiring intensive monitoring for toxicity (Heparin, Nitro, Insulin, Cardizem)? @ -None Were any procedures done? @ -None Diagnosis/symptom? @ -Tick bite, rash Acute, or Chronic, or Acute on Chronic? @ -Acute Uncomplicated (without systemic symptoms) or Complicated (systemic symptoms)? @ -Uncomplicated Side effects of treatment? @ -None Exacerbation, Progression, or Severe Exacerbation] @ -Not applicable Poses a threat to life or bodily function? @ -No Return precautions reviewed in depth, the patient is instructed to return to the emergency department with any new, worsening, or concerning symptoms. Patient verbalized understanding. This case was discussed in detail with the attending ED physician, Dr. Zuluaga. Presentation, findings, and treatment plan discussed in detail as well. Disposition Clinical Impression: Tick bite, Rash, Nicotine dependence Disposition: HOME SELF-CARE Instructions (If sedation given, give patient instructions): Lyme Disease (ED), Tick Bite (ED) Additional Instructions: Return to the emergency department with any new, worsening, or concerning symptoms. Take the antibiotic as prescribed for 10 days. Follow up with your primary care provider in 1-2 days. Prescriptions: Doxycycline Hyclate 100 mg PO BID 10 Days #20 tab Is patient prescribed a controlled substance at d/c from ED?: No Referrals: Ashish Raphael DO [Primary Care Provider] - 1-2 days Time of Disposition: 14:30
== END 2024-03-22 14:38 | disposition home or self-care (01) ==
LOC: EC 13:11
DX: S30.860A Insect bite (nonvenomous) of lower back and pelvis, initial encounter (principal); R21 Rash and other nonspecific skin eruption; F17.200 Nicotine dependence, unspecified, uncomplicated; Z82.2 Family history of deafness and hearing loss; W57.XXXA Bitten or stung by nonvenomous insect and other nonvenomous arthropods, initial encounter
CPT/HCPCS: 99282; 99406